=== PATIENT | female | born 2000 | race Caucasian/White ===

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

== ENCOUNTER 2022-04-17 20:12 | Emergency (ER) | payer MEDICAID, SELFPAY ==
[2022-04-17 20:37] VITALS: BP 111/74; PULSE 102; RESP 16; TEMP 36.6; O2SAT 100
--- NOTE | 2022-04-17 20:48 | ED_ITS ---
HPI - Headache General: Chief Complaint: Headache Stated Complaint: migraine Time Seen by Provider: 04/17/22 20:42 History of Present Illness: 21-year-old female comes in today with complaints of migraine headache for the last 2 days. Patient has had nausea and vomiting with the headache. Patient does have a history of migraine headache and neurofibromatosis. Patient is usually managed well with her every third month injection for control of her migraine headaches. Patient denies any fever or other symptoms at this time. Review of Systems Neuro: Reports: headache(s) PFSH ED PFSH: Medical History Allergic rhinitis due to allergen Family History Grandmother Stroke Social History (Updated 04/08/22 @ 14:06 by Stacey Caballero) Smoking and tobacco status: never smoked Second hand smoke exposure: No Alcohol intake: never Physical Exam Const: COMMON NORMALS: alert HENMT: COMMON NORMALS: normocephalic HEAD & SCALP: normocephalic Neck/C-Spine: COMMON NORMALS: full ROM Resp: COMMON NORMALS: normal respiratory effort and clear to auscultation bilaterally AUSCULTATION: clear to auscultation bilaterally Cardio: COMMON NORMALS: regular rate and regular rhythm RATE: regular rate RHYTHM: regular rhythm Extremity: COMMON NORMALS: no pedal edema Neuro: SENSORIUM/ORIENTATION: Yes alert Skin: COMMON NORMALS: turgor normal GENERAL SKIN EXAM: turgor normal Course Vital Signs: Vital signs: Vital Signs Temperature 97.8 F 04/17/22 20:37 Pulse Rate 102 H 04/17/22 20:37 Respiratory Rate 16 04/17/22 20:37 Blood Pressure 111/74 04/17/22 20:37 Pulse Oximetry 100 04/17/22 20:37 Oxygen Delivery Me thod 04/17/22 20:37 MDM - Headache Medical Decision Making 21-year-old female comes in today with 2-day history of migraine headache and nausea and vomiting. Patient does have a history of migraines which is usually controlled well with a injection every 3 months. Patient appears nontoxic. Patient appears in moderate pain. No new focal neural deficits are noted. Differential diagnosis includes tension headache, migraine headache, viral syndrome. Patient was given a headache cocktail with 15 mg ketorolac, 10 mg Reglan, and 10 mg dexamethasone. Patient had resolution of headache. Recommended continuing routine care and follow-up as needed. Patient reported understanding and agreed to plan. Discharge Plan Discharge Patient Disposition: Home Clinical Impression: Migraine Qualifiers: Migraine type: unspecified Status migrainosus presence: without status migrainosus Intractability: not intractable Qualified Code(s): G43.909 - Migraine, unspecified, not intractable, without status migrainosus Condition: Stable Prescriptions: No Action amoxicillin 500 mg capsule 500 mg PO BID 7 Days Qty: 14 0RF control IM albuterol sulfate [Ventolin HFA] 90 mcg/actuation HFA aerosol inhaler 2 puff inhalation Q6H PRN (Reason: shortness of breath or wheezing) Qty: 8.5 0RF Ajovy Autoinjector 225 mg/1.5 mL auto-injector 225 mg SUBCUT ONCE Qty: 1.5 3RF Discharge Orders: Discharge ED (Routine); Ordered 04/17/22 Ordered By: José Manuel Koenig Referrals: Aniya Mota MD [Primary Care Provider] - Nemesio Mota MD [Family Provider] - Discharge Diet: Usual diet Discharge Activity: Increase activity as tolerated Patient Instructions: Headache - Migraine (Adult) Activity Restrictions/Additional Instructions: Continue with routine care. Follow-up with primary care or urologist for further recommendations of treatment. Return to ED for new concerns or worsening symptoms. Coding Level of Care Code ED Corporate Compliance Manager for Charli Fwd Exam Detailed
[2022-04-17] MEDS: ketorolac 30 mg/mL INJ 15 MG IVP (20:58)
[2022-04-17] MEDS: dexamethasone 10 mg/mL INJ IVP (20:58)
[2022-04-17] MEDS: sodium chloride 0.9% 500 ML 999 ML IV (20:59)
[2022-04-17] MEDS: metoclopramide 5 mg/mL SDV 2 mL 10 MG IVP (20:59)
== END 2022-04-17 21:37 | disposition home or self-care (01) ==
PROVIDERS: Emergency Provider Nurse Practitioner Family; Family Provider Pediatrics; PCP Internal Medicine
DX: G43.909 Migraine, unspecified, not intractable, without status migrainosus (principal)
CPT/HCPCS: 96361; 96374; 96375; 99284; J1100; J1885; J2765; J7040

== ENCOUNTER 2022-06-25 19:52 | Emergency (ER) | payer MEDICAID, SELFPAY ==
[2022-06-25 20:13] VITALS: BP 118/79; PULSE 117; RESP 18; TEMP 36.9; O2SAT 97; BMI 22.4
--- NOTE | 2022-06-25 21:11 | W.ED.HA ---
HPI - Headache General: Chief Complaint: Headache Stated Complaint: migraine for 3 days Time Seen by Provider: 06/25/22 20:53 History of Present Illness: 22-year-old female comes in today for complaints of migraine headache. Patient has recurrent migraine headaches and is prophylactic treatment monthly. Patient does get breakthrough headaches about every 3 months. Last time she was treated in the ER was approximately 3 months ago. Patient appears nontoxic. Patient appears no acute distress. Associated symptoms: Deny fever(s) or vomiting Review of Systems General: Reports: 10 or more systems reviewed and unremarkable except in HPI and below Const: Denies: fever(s) ENMT: Denies: throat pain GI: Denies: vomiting Musc: Denies: neck pain Neuro: Reports: headache(s) PFSH ED PFSH: Medical History Allergic rhinitis due to allergen Family History Grandmother Stroke Social History (Updated 04/08/22 @ 14:06 by Stacey Caballero) Smoking and tobacco status: never smoked Second hand smoke exposure: No Alcohol intake: never Physical Exam Const: COMMON NORMALS: alert Neck/C-Spine: COMMON NORMALS: full ROM Resp: COMMON NORMALS: normal respiratory effort Cardio: COMMON NORMALS: regular rate RATE: regular rate Extremity: COMMON NORMALS: normal to inspection Neuro: SENSORIUM/ORIENTATION: Yes alert Skin: COMMON NORMALS: no rashes or lesions noted GENERAL SKIN EXAM: no rashes or lesions noted Course Vital Signs: Vital signs: Vital Signs Temperature 98.5 F 06/25/22 20:13 Pulse Rate 117 H 06/25/22 20:13 Respiratory Rate 18 06/25/22 20:13 Blood Pressure 118/79 06/25/22 20:13 Pulse Oximetry 97 06/25/22 20:13 Oxygen Delivery Me thod 06/25/22 20:13 MDM - Headache Medical Decision Making 22-year-old female comes in today with complaints of migraine. On exam patient is alert and oriented. Patient appears nontoxic. Respirations are even. Vital signs are normal. Differential diagnosis includes migraine headache, tension headache, dehydration. No signs of serious illness or injury is noted. Patient was treated for migraine headache with dexamethasone, metoclopramide, and ketorolac. Patient tolerated well with improvement of headache and discharged home. Discharge Plan Discharge Patient Disposition: Home Clinical Impression: Migraine Condition: Stable Prescriptions: No Action amoxicillin 500 mg capsule 500 mg PO BID 7 Days Qty: 14 0RF control IM albuterol sulfate [Ventolin HFA] 90 mcg/actuation HFA aerosol inhaler 2 puff inhalation Q6H PRN (Reason: shortness of breath or wheezing) Qty: 8.5 0RF Ajovy Autoinjector 225 mg/1.5 mL auto-injector 225 mg SUBCUT ONCE Qty: 1.5 3RF Discharge Orders: Discharge ED (Routine); Ordered 06/25/22 Ordered By: José Manuel Koenig Referrals: Aniya Mota MD [Primary Care Provider] - Nemesio Mota MD [Family Provider] - Discharge Diet: Usual diet Discharge Activity: Increase activity as tolerated Patient Instructions: Migraine Headache (ED) Activity Restrictions/Additional Instructions: Home and rest. Drink plenty of water and fluids. Continue with routine care. Return to ER for new concerns. Coding Level of Care Code ED Supervisor Fiber Locking for Charli Connelly
[2022-06-25] MEDS: metoclopramide 5 mg/mL SDV 2 mL 10 MG IVP (21:24)
[2022-06-25] MEDS: ketorolac 30 mg/mL INJ 15 MG IVP (21:25)
[2022-06-25] MEDS: dexamethasone 10 mg/mL INJ IM (21:30)
[2022-06-25] MEDS: sodium chloride 0.9% 500 ML 999 ML IV (21:36)
== END 2022-06-25 22:00 | disposition home or self-care (01) ==
PROVIDERS: Emergency Provider Nurse Practitioner Family; Family Provider Pediatrics; PCP Internal Medicine
DX: G43.909 Migraine, unspecified, not intractable, without status migrainosus (principal)
CPT/HCPCS: 96374; 96375; 99284; J1100; J1885; J2765; J7040

== ENCOUNTER 2022-07-19 17:33 | Emergency (ER) | payer MEDICAID, SELFPAY ==
[2022-07-19 17:45] VITALS: BP 106/73; PULSE 92; RESP 15; TEMP 36.9; O2SAT 99
--- NOTE | 2022-07-19 18:22 | ED_ITS ---
HPI - Headache General: Chief Complaint: Headache Stated Complaint: headpain Time Seen by Provider: 07/19/22 17:55 Source: patient Mode of arrival: ambulatory Limitations: no limitations History of Present Illness: Patient presents to the emergency department today for evaluation treatment of recurrence of her chronic migraines. Intensive chart review regarding the patient's complaints did reveal that she has been seen and evaluated by neurology since last year and has known diagnosed neurofibromatosis. Patient is also followed for her chronic migraines and has been receiving various treatments for control of her headaches. Patient is currently on an every 6- month follow-up with neurology. Patient was seen last month for similar headache and, 3 months prior to that. Patient states she has had her headache now for a couple of days and has been trying Tylenol with some improvement of symptoms but no resolution. Patient reports her typical photophobia and sound sensitivity. She denies any vomiting at this time. Associated symptoms: Deny confusion Review of Systems General: Reports: 10 or more systems reviewed and unremarkable except in HPI and below Neuro: Reports: headache(s); Denies: weakness in extremities, confusion or Slurred speech present [facility] ED PFSH: Medical History Allergic rhinitis due to allergen Family History Grandmother Stroke Social History Smoking and tobacco status: never smoked Second hand smoke exposure: No Alcohol intake: never Substance/Drug Use: never Physical Exam Const: COMMON NORMALS: no acute distress, patient oriented x3 and alert OTHER: Patient is talking on her cell phone and is up pacing [id number]. HENMT: COMMON NORMALS: normocephalic and atraumatic HEAD & SCALP: normal to inspection, normocephalic and atraumatic Eye: COMMON NORMALS: Equal, round and reactive pupils present, EOMs intact bilaterally and conjunctivae normal CONJUNCTIVA: Yes conjunctivae normal PUPIL: Yes Equal, round and reactive pupils present Neck/C-Spine: COMMON NORMALS: no JVD Lymph: LYMPHATIC: no lymphadenopathy noted Resp: COMMON NORMALS: normal respiratory effort, No retractions and No use of accessory muscles Cardio: COMMON NORMALS: no JVD and regular rate RATE: regular rate : COMMON NORMALS: Yes no CVA tenderness BLADDER/KIDNEY EXAM: Yes no CVA tenderness Back/Pelvis: COMMON NORMALS: no CVA tenderness, thoracic and lumbar spine normal to inspection and thoraco-lumbar ROM normal Extremity: COMMON NORMALS: normal to inspection, full ROM and no pedal edema Neuro: COMMON NORMALS: patient oriented x3 SENSORIUM/ORIENTATION: Yes alert SPEECH: speech normal GAIT: Yes Normal gait present MOTOR EXAM: 5/5 motor strength present throughout OTHER: Patient shows no signs of any neurological deficit. Patient is ambulatory without ataxia. Skin: COMMON NORMALS: no rashes or lesions noted and turgor normal GENERAL SKIN EXAM: no rashes or lesions noted and turgor normal Course Vital Signs: Vital signs: Vital Signs Temperature 98.5 F 07/19/22 17:45 Pulse Rate 92 07/19/22 17:45 Respiratory Rate 15 07/19/22 17:45 Blood Pressure 106/73 07/19/22 17:45 Pulse Oximetry 99 07/19/22 17:45 Oxygen Delivery Me thod Room Air 07/19/22 17:45 MDM - Headache Medical Decision Making Patient presented to the emergency department today for evaluation treatment of 2 days of her typical migraine headache. I did an extensive evaluation of the patient's past medical history and neuro evaluations in the past. Patient is currently being treated for chronic migraine headaches and often gets breakthrough headaches. She has been treated with steroid, Reglan, and Toradol in the past with good result. Patient was treated similarly today and had good resolution of her symptoms. Patient is requesting to be discharged and is up and ambulatory, talking on her cell phone. Patient was encouraged to reach out to her neurologist or follow-up with primary care for continued monitoring of her recurrent breakthrough migraines or, should be seen and reevaluated in the ER for any acute neurological change. Differential Diagnosis Likely migraine, tension headache, headache and meningitis Discharge Plan Discharge Patient Disposition: Home Clinical Impression: Migraine Condition: Stable Prescriptions: No Action amoxicillin 500 mg capsule 500 mg PO BID 7 Days Qty: 14 0RF control IM albuterol sulfate [Ventolin HFA] 90 mcg/actuation HFA aerosol inhaler 2 puff inhalation Q6H PRN (Reason: shortness of breath or wheezing) Qty: 8.5 0RF Ajovy Autoinjector 225 mg/1.5 mL auto-injector 225 mg SUBCUT ONCE Qty: 1.5 3RF Discharge Orders: Discharge ED (Routine); Ordered 07/19/22 Ordered By: Lu Brown Referrals: Aniya Mota MD [Primary Care Provider] - Discharge Diet: Usual diet Discharge Activity: Increase activity as tolerated Patient Instructions: Migraine Headache (ED) Activity Restrictions/Additional Instructions: Continue to stay hydrated, rest, eat regular, healthy meals. If you have any acute change or worsening in your headache you should be seen and reevaluated again otherwise, follow-up with your primary care doctor or neurologist for any concerns. Coding Level of Care Code ED Contact Center Manager for Charli Connelly
[2022-07-19] MEDS: dexamethasone 10 mg/mL INJ IM (18:28)
[2022-07-19] MEDS: ketorolac 30 mg/mL INJ 15 MG IVP (18:28)
[2022-07-19] MEDS: metoclopramide 5 mg/mL SDV 2 mL 10 MG IVP (18:29)
== END 2022-07-19 19:41 | disposition home or self-care (01) ==
PROVIDERS: Emergency Provider Physician Assistant; PCP Internal Medicine
DX: G43.909 Migraine, unspecified, not intractable, without status migrainosus (principal)
CPT/HCPCS: 96372; 96374; 96375; 99284; J1100; J1885; J2765

== ENCOUNTER → 2022-08-08 14:38 | Outpatient (BNVA) | payer MEDICAID, SELFPAY | PROVIDERS: PCP Internal Medicine; Visit Provider Family Medicine Adult Medicine | DX: Q85.01 Neurofibromatosis, type 1 (principal); J30.9 Allergic rhinitis, unspecified; G43.711 Chronic migraine without aura, intractable, with status migrainosus | CPT/HCPCS: 80053; 80061; 84443; 85025 ==

== ENCOUNTER 2022-10-07 11:03 | Emergency (ER) | payer MEDICAID, SELFPAY ==
[2022-10-07 11:06] VITALS: BP 102/70; PULSE 98; RESP 16; TEMP 36.8; O2SAT 98; BMI 21.4
--- NOTE | 2022-10-07 11:26 | W.ED.EXTPRO ---
HPI - Extremity Problem General: Chief complaint: Extremity Problem,Nontraumatic Stated complaint: too small ring on finger Time Seen by Provider: 10/07/22 11:20 Source: patient Mode of arrival: ambulatory Limitations: no limitations History of Present Illness: Patient is a 22-year-old female who presents to the ED today with a ring stuck on her right ring finger. She states just prior to arrival she was going through a box of old junk and found the ring and put it on her finger and has been unable to get it off. She has since noticed some mild swelling to the digit but no color/temperature changes. Sensation is normal. MD Complaint: extremity pain Onset (ago): hour(s) Pain Consistency: constant Location: right and upper extremity Radiation: none Relieving factors: nothing Associated symptoms: Reports no associated symptoms Review of Systems Musc: Reports: extremity pain and extremity swelling Skin/Breast: Denies: erythema Neuro: Denies: numbness in extremities or sensory changes PFS ED PFSH: Medical History Allergic rhinitis due to allergen Neurofibromatosis, type 1 Participant in health and wellness plan Scoliosis Family History Grandmother Stroke Social History Smoking and tobacco status: never smoked Second hand smoke exposure: No Alcohol intake: never Substance/Drug Use: never Physical Exam Const: COMMON NORMALS: no acute distress, average body habitus, patient oriented x3, no limitations, alert and well nourished Extremity: COMMON NORMALS: full ROM and capillary refill normal GENERAL: Yes normal exam except as noted RIGHT UPPER EXTREMITY: Yes hand & digits OTHER: ring to R ring finger that is too tight to be removed manually; string trick unsuccessful; ring was removed using ring cutter; NV pre and post procedure Neuro: COMMON NORMALS: patient oriented x3 SENSORIUM/ORIENTATION: Yes alert Procedures Foreign Body Removal Time Out Performed: no Site: right and hand (right ring finger) Description of foreign body: other (ring) Sedation/Analgesia: none Technique: other (ring cutter) Confirmed by:: direct visualization Complications: none Post-procedure exam: awake, alert, normal BP, normal HR and normal O2 sat Neurovascular: normal distal pulse, normal capillary fill, distal light touch sensation intact, distal motor function normal and no signs of compartment syndrome Course Vital Signs: Vital signs: Vital Signs Temperature 98.2 F 10/07/22 11:06 Pulse Rate 98 10/07/22 11:06 Respiratory Rate 16 10/07/22 11:06 Blood Pressure 102/70 10/07/22 11:06 Pulse Oximetry 98 10/07/22 11:06 Oxygen Delivery Me thod Room Air 10/07/22 11:06 MDM - Extremity (Nontraumatic) Medical Decision Making Ring was cut off using ring cutter w/o complication. Discharge Plan Discharge Patient Disposition: Home Clinical Impression: Tight ring on finger Condition: Stable Prescriptions: No Action control IM albuterol sulfate [Ventolin HFA] 90 mcg/actuation HFA aerosol inhaler 2 puff inhalation Q6H PRN (Reason: shortness of breath or wheezing) Qty: 8.5 0RF propranolol 10 mg tablet 10 mg PO BID 120 Days Qty: 240 0RF montelukast [Singulair] 10 mg tablet 10 mg PO DAILY 120 Days Qty: 120 0RF Ajovy Autoinjector 225 mg/1.5 mL auto-injector See Rx Instructions .ROUTE .COMPLEX Qty: 1.5 2RF Dose Instruction: INJECY CONTENTS OF ONE PEN UNDER THE SKIN ONCE A MONTH Rx Instructions: INJECY CONTENTS OF ONE PEN UNDER THE SKIN ONCE A MONTH Discharge Orders: Discharge ED (Routine); Ordered 10/07/22 Ordered By: Krupa Dugan Referrals: Aniya Mota MD [Primary Care Provider] - Coding Level of Care Code ED Javascript Ui Developer for Chg Maricel
== END 2022-10-07 11:34 | disposition home or self-care (01) ==
PROVIDERS: Emergency Provider Physician Assistant; PCP Internal Medicine
DX: S60.454A Superficial foreign body of right ring finger, initial encounter (principal); X58.XXXA Exposure to other specified factors, initial encounter
CPT/HCPCS: 99282

== ENCOUNTER → 2022-12-09 07:33 | Outpatient (BNVA) | payer MEDICAID, SELFPAY | PROVIDERS: PCP Internal Medicine; Visit Provider Specialist | DX: G43.711 Chronic migraine without aura, intractable, with status migrainosus (principal); G93.9 Disorder of brain, unspecified; Q85.01 Neurofibromatosis, type 1 | CPT/HCPCS: 99213 ==

== ENCOUNTER 2023-04-14 05:17 | Emergency (ER) | payer MEDICAID, SELFPAY ==
[2023-04-14 05:20] VITALS: BP 121/87; PULSE 86; RESP 16; TEMP 36.6; O2SAT 99; BMI 17.4
[2023-04-14] MEDS: metoclopramide 5 mg/mL SDV 2 mL 10 MG IVP (05:51)
[2023-04-14] MEDS: ketorolac 30 mg/mL INJ 15 MG IVP (05:52)
[2023-04-14] MEDS: dexamethasone 4 mg/mL INJ 8 MG IVP (05:53)
[2023-04-14] MEDS: valproic acid inj 500 MG in sodium chloride 0.9% 50 ML 55 MG IV (05:56)
[2023-04-14 06:02] VITALS: PULSE 82; O2SAT 99
--- NOTE | 2023-04-14 06:06 | W.ED.HA ---
HPI - Headache General: Chief Complaint: Headache Stated Complaint: Head Ache Time Seen by Provider: 04/14/23 05:38 History of Present Illness: 22-year-old female with a history of neurofibromatosis. She also has a history of chronic migraine. She presents with a headache that started last night. She took her migraine medication at home, without relief. She is nauseated. She has not vomited. No recent illness such as fever, cough, etc. No new or neurologic symptoms. No blurred vision, weakness, trouble with language or speech. Associated symptoms: Reports nausea; Deny chest pain, confusion, fever(s) or vomiting Review of Systems Const: Denies: fever(s) Eyes: Denies: change in vision ENMT: Denies: throat pain Card: Denies: chest pain Resp: Denies: dyspnea GI: Reports: nausea; Denies: vomiting Musc: Denies: neck pain Neuro: Reports: headache(s); Denies: numbness in extremities, weakness in extremities, confusion or seizure-like activity [facility] ED PFSH: Medical History Participant in health and wellness plan Scoliosis Neurofibromatosis, type 1 Allergic rhinitis due to allergen Family History Grandmother Stroke Social History Smoking and tobacco/nicotine status: never used tobacco/nicotine Second hand smoke exposure: No Alcohol intake: never Substance/Drug Use: never Female Reproductive History: Date of last menstrual period: 03/26/23 Physical Exam Const: COMMON NORMALS: no acute distress GENERAL APPEARANCE: cooperative; not ill appearing and not frail appearing HENMT: COMMON NORMALS: normocephalic, atraumatic and Normal external nose present HEAD & SCALP: normocephalic and atraumatic FACE & SINUS: normal facial exam and face symmetric NOSE: Normal external nose present Eye: COMMON NORMALS: Equal, round and reactive pupils present and EOMs intact bilaterally PUPIL: Yes Equal, round and reactive pupils present Neck/C-Spine: GENERAL: Yes trachea midline Chest: CHEST: Yes Symmetrical chest wall rise Resp: COMMON NORMALS: normal respiratory effort, No retractions, No use of accessory muscles and clear to auscultation bilaterally AUSCULTATION: clear to auscultation bilaterally Cardio: COMMON NORMALS: regular rate and regular rhythm RATE: regular rate RHYTHM: regular rhythm GI: COMMON NORMALS: Normal to inspection, nondistended, normoactive bowel sounds present Extremity: COMMON NORMALS: no pedal edema Neuro: OLIVIA COMA SCALE: document GCS findings Olivia coma scale eye opening: Spontaneous [place] coma scale verbal response: Orientated Olivia coma scale motor response: Obey commands Olivia coma scale total score: 15 SENSORY EXAM: Yes extremities (intact) Psych: COMMON NORMALS: speech normal SPEECH: Yes normal speech Skin: COMMON NORMALS: no rashes or lesions noted GENERAL SKIN EXAM: no rashes or lesions noted Course Vital Signs: Vital signs: Vital Signs Temperature 97.9 F 04/14/23 05:20 Pulse Rate 82 04/14/23 06:02 Respiratory Rate 16 04/14/23 05:20 Blood Pressure 121/87 04/14/23 05:20 Pulse Oximetry 99 04/14/23 06:02 Oxygen Delivery Me thod Room Air 04/14/23 06:02 MDM - Headache Medical Decision Making Patient with a long history of migraine. No change in her migrainous symptoms, other than this headache did not improve significantly with home treatment alone. She is given a migraine cocktail here. Pain is now rated at 3 down from a 9. Will allow discharge. She knows to return for worsening symptoms, or any new neurological symptoms such as vision changes, weakness, etc. No radiology studies performed this visit Discharge Plan Discharge Patient Disposition: Home Clinical Impression: Chronic migraine without aura, intractable, with status migrainosus Prescriptions: No Action Ajovy Autoinjector 225 mg/1.5 mL auto-injector See Rx Instructions .ROUTE .COMPLEX Qty: 1.5 11RF Dose Instruction: INJECY CONTENTS OF ONE PEN UNDER THE SKIN ONCE A MONTH Rx Instructions: INJECY CONTENTS OF ONE PEN UNDER THE SKIN ONCE A MONTH sumatriptan succinate [Imitrex] 100 mg tablet See Rx Instructions PO .COMPLEX Qty: 10 5RF Rx Instructions: take 1 tab at onset of headache; if no relief, may repeat 1 tab after at least 2 hrs; max = 2 tabs/24 hrs PO control IM albuterol sulfate [Ventolin HFA] 90 mcg/actuation HFA aerosol inhaler 2 puff inhalation Q6H PRN (Reason: shortness of breath or wheezing) Qty: 8.5 0RF montelukast [Singulair] 10 mg tablet 10 mg PO DAILY 120 Days Qty: 120 0RF Discharge Orders: Discharge ED (Routine); Ordered 04/14/23 Ordered By: Tarun Williamson Referrals: Aniya Mota MD [Primary Care Provider] - 4-7 days Patient Instructions: Acute Headache (ED), Opioid Safety, Pain Management Activity Restrictions/Additional Instructions: Return for vomiting, worsening pain, vision changes, language problems, weakness, other concerning symptoms. See your doctor this week. Coding Level of Care Code ED Warehouse Operator for Charli Connelly
[2023-04-14 06:50] VITALS: BP 121/87; PULSE 93; O2SAT 100
[2023-04-14] MEDS: oxyCODONE-APAP 5-325 mg Tablet 1 TAB PO (06:53)
== END 2023-04-14 06:52 | disposition home or self-care (01) ==
PROVIDERS: Emergency Provider Emergency Medicine; PCP Internal Medicine
DX: G43.711 Chronic migraine without aura, intractable, with status migrainosus (principal)
CPT/HCPCS: 96365; 96375; 99284; J1100; J1885; J2765; J3490

== ENCOUNTER 2023-05-28 23:00 | Emergency (ER) | payer MEDICAID, SELFPAY ==
[2023-05-28 23:21] VITALS: BP 122/82; PULSE 78; RESP 16; TEMP 36.6; O2SAT 98; BMI 21.1
--- NOTE | 2023-05-28 23:32 | W.ED.URI ---
HPI - URI/Sore Throat General: Chief Complaint: Upper Respiratory Infection Stated Complaint: Sore throat cant eat coughing Time Seen by Provider: 05/28/23 23:02 Source: patient Mode of arrival: ambulatory Limitations: no limitations History of Present Illness: Patient is a 22-year-old female with history of neurofibromatosis type I who reports to the ED complaining of sore throat onset 2-3 days. Patient states she saw her primary care provider initially, but was not swabbed for flu or strep and was given a prescription for an antitussive. She states she still has a cough, though nonproductive. The patient also says that she looks more pale than normal. She also reports running subjective fevers and says that it hurts to eat. Otherwise, she denies any abdominal pain, nausea, vomiting, diarrhea, difficulty breathing, or any other symptoms. MD elicited complaint: sore throat Onset (ago): day(s) Consistency: constant Able to tolerate fluids by mouth: Yes Exacerbating factors: swallowing Associated symptoms: Reports fever(s) (Subjective); Deny abdominal pain, chills, chest pain, diarrhea, ear or mastoid pain, headache(s), nausea or vomiting Review of Systems General: Reports: 10 or more systems reviewed and unremarkable except in HPI and below Const: Reports: fever(s) (Subjective) and other (Pallor); Denies: chills, body aches, fatigue or malaise Eyes: Denies: change in vision ENMT: Reports: throat pain and odynophagia; Denies: ear or mastoid pain or nasal discharge Card: Denies: chest pain, palpitations, swelling of feet/ankles or lightheadedness Resp: Reports: non-productive cough; Denies: dyspnea or wheezing GI: Denies: abdominal pain, nausea, vomiting, diarrhea or constipation : Denies: flank pain, difficulty voiding, dysuria or urinary frequency Musc: Denies: neck pain, back pain or joint pain Skin/Breast: Denies: rash Neuro: Denies: headache(s), numbness in extremities or weakness in extremities PFS ED PFSH: Medical History Participant in health and wellness plan Scoliosis Neurofibromatosis, type 1 Allergic rhinitis due to allergen Family History Grandmother Stroke Social History Smoking and tobacco/nicotine status: never used tobacco/nicotine Second hand smoke exposure: No Alcohol intake: never Substance/Drug Use: never Physical Exam Const: COMMON NORMALS: no acute distress, patient oriented x3 and no limitations GENERAL APPEARANCE: cooperative, comfortable and well developed ORIENTATION/CONSCIOUSNESS: Yes awake, Yes oriented to person, Yes oriented to place and Yes oriented to time HENMT: COMMON NORMALS: normocephalic, atraumatic, hearing grossly normal bilaterally, external ears normal, EAC's normal, TM's normal bilaterally, Normal external nose present and Normal nasal mucous membranes and turbinates present HEAD & SCALP: normocephalic and atraumatic FACE & SINUS: normal facial exam and sinuses nontender NOSE: Normal external nose present, Normal nares present, No nasal polyps present and Normal nasal mucous membranes and turbinates present EXTERNAL EAR: Yes external ears normal EXTERNAL AUDITORY CANAL: EAC's normal TYMPANIC MEMBRANE: TM's normal bilaterally MOUTH: Normal oral and palatal mucosa present THROAT: posterior oropharynx normal, uvula midline and abnormal tonsil bilateral hypertrophy 1+; no erythema, no exudates and no pitting Eye: COMMON NORMALS: Equal, round and reactive pupils present, EOMs intact bilaterally and conjunctivae normal CONJUNCTIVA: Yes conjunctivae normal PUPIL: Yes Equal, round and reactive pupils present Neck/C-Spine: COMMON NORMALS: full ROM, supple and no JVD Lymph: LYMPHATIC: lymphadenopathy (Right anterior cervical) Resp: COMMON NORMALS: normal respiratory effort, No retractions, No use of accessory muscles and clear to auscultation bilaterally AUSCULTATION: clear to auscultation bilaterally Cardio: COMMON NORMALS: no JVD, regular rate, regular rhythm, No clicks present (Cardio), No murmurs present (Cardio) and No rub (Cardio) RATE: regular rate RHYTHM: regular rhythm GI: COMMON NORMALS: Normal to inspection, nondistended, normoactive bowel sounds present, Soft to palpation and non-tender PALPATION: Yes Soft to palpation Extremity: COMMON NORMALS: normal to inspection and full ROM Neuro: COMMON NORMALS: patient oriented x3, moves all extremities, no focal motor deficits and no sensory deficits noted SENSORIUM/ORIENTATION: Yes oriented to person, Yes oriented to place and Yes oriented to time Psych: COMMON NORMALS: mental status grossly normal and Normal thought process present THOUGHT PROCESS: Normal thought process present Skin: COMMON NORMALS: no rashes or lesions noted GENERAL SKIN EXAM: no rashes or lesions noted and pallor Course Vital Signs: Vital signs: Vital Signs Temperature 97.9 F 05/28/23 23:21 Pulse Rate 78 05/28/23 23:21 Respiratory Rate 16 05/28/23 23:21 Blood Pressure 122/82 05/28/23 23:21 Pulse Oximetry 98 05/28/23 23:21 Oxygen Delivery Me thod Room Air 05/28/23 23:21 MDM - URI/Sore Throat Medical Decision Making This patient is a 22-year-old female who was seen and evaluated in the emergency department today for sore throat. This is her second time being evaluated for the symptoms, as she was only prescribed an antitussive with her past visit at her primary care's office. Her vitals have been stable throughout her ED course, she has been afebrile. Examination reveals a mildly pale individual with minimally hypertrophied tonsils bilaterally and no signs of exudates or cobblestoning. She also had a mobile and tender lymph node noted at the anterior cervical area. The rest of her exam was unremarkable. Rapid strep and flu A/B swabs were both negative. I believe that her symptoms are due to an unspecified upper respiratory illness. She will be given a shot of dexamethasone and Toradol prior to discharge. Patient will also be sent home with a prescription for clindamycin to empirically treat any bacterial etiology. Pain medications will be prescribed for use as needed for any breakthrough pain. She is also instructed to use Tylenol/ibuprofen for any fevers. She will return to work once symptom-free. Patient agrees with this plan and reasons to return discussed. Patient discharged home. Lab Data Laboratory Results Influenza Type A Ag negative (Negative) 05/28/23 23:42 Influenza Type B Ag negative (Negative) 05/28/23 23:42 Group A Strep Rapid Negative (Negative) 05/28/23 23:42 No radiology studies performed this visit Discharge Plan Discharge Patient Disposition: Home Clinical Impression: Upper respiratory infection Qualifiers: URI type: acute pharyngitis Pharyngitis/tonsillitis etiology: unspecified etiology Qualified Code(s): J02.9 - Acute pharyngitis, unspecified Condition: Stable Prescriptions: New clindamycin HCl 300 mg capsule 300 mg PO Q6H 7 Days Qty: 28 0RF hydrocodone-acetaminophen 5-325 mg tablet 1 tab PO Q6H PRN (Reason: pain) Qty: 7 0RF No Action Ajovy Autoinjector 225 mg/1.5 mL auto-injector See Rx Instructions .ROUTE .COMPLEX Qty: 1.5 11RF Dose Instruction: INJECY CONTENTS OF ONE PEN UNDER THE SKIN ONCE A MONTH Rx Instructions: INJECY CONTENTS OF ONE PEN UNDER THE SKIN ONCE A MONTH sumatriptan succinate [Imitrex] 100 mg tablet See Rx Instructions PO .COMPLEX Qty: 10 5RF Rx Instructions: take 1 tab at onset of headache; if no relief, may repeat 1 tab after at least 2 hrs; max = 2 tabs/24 hrs PO control IM albuterol sulfate [Ventolin HFA] 90 mcg/actuation HFA aerosol inhaler 2 puff inhalation Q6H PRN (Reason: shortness of breath or wheezing) Qty: 8.5 0RF montelukast [Singulair] 10 mg tablet 10 mg PO DAILY 120 Days Qty: 120 0RF benzonatate 100 mg capsule 100 mg PO TID PRN (Reason: cough) Qty: 20 0RF Discharge Orders: Discharge ED (Routine); Ordered 05/29/23 Ordered By: Carlos Ramírez Referrals: Aniya Mota MD [Primary Care Provider] - Discharge Diet: Usual diet Discharge Activity: Increase activity as tolerated Patient Instructions: Upper Respiratory Infection (ED), Opioid Safety, Pain Management Activity Restrictions/Additional Instructions: Clindamycin as prescribed. Pain medications as directed. Tylenol/ibuprofen for any fevers. Plenty of fluids. Off work until symptom-free. Return if any new or worsening symptoms. Stand Alone Forms: Work/School Release Coding Level of Care Code ED Parts Counterman for Charli Connelly
[2023-05-28 23:54] LABS: Rapid Strep A Test Negative (Negative)
[2023-05-29 00:03] LABS: Influenza A by IFA negative (Negative); Influenza B by IFA negative (Negative)
[2023-05-29] MEDS: dexamethasone 10 mg/mL INJ 8 MG IM (00:21)
[2023-05-29] MEDS: ketorolac 60 mg/2 mL INJ IM (00:22)
== END 2023-05-29 00:47 | disposition home or self-care (01) ==
PROVIDERS: Emergency Provider Physician Assistant; PCP Internal Medicine
DX: J02.9 Acute pharyngitis, unspecified (principal)
CPT/HCPCS: 87081; 87804; 87880; 96372; 99284; J1100; J1885

== ENCOUNTER 2023-07-24 21:12 | Emergency (ER) | payer MEDICAID, SELFPAY ==
[2023-07-24 21:18] VITALS: BP 110/76; PULSE 91; RESP 16; TEMP 36.2; O2SAT 97
--- NOTE | 2023-07-24 21:40 | W.ED.HA ---
HPI - Headache General: Chief Complaint: Headache Stated Complaint: N/V, Time Seen by Provider: 07/24/23 21:32 History of Present Illness: 23-year-old female comes in today for complaints of migraine headache. Patient reports started about 4 hours prior to arrival. Patient had no medicine at home to take but usually just uses some ibuprofen or Tylenol with improvement. Tonight patient been unable to hold medicine down. Patient has had episodes of emesis with this headache. Patient does take a prevention injection for her migraines. Patient takes no other routine medicines. Patient's . Review of Systems General: Reports: 10 or more systems reviewed and unremarkable except in HPI and below Neuro: Reports: headache(s) PFSH ED PFSH: Medical History Participant in health and wellness plan Scoliosis Neurofibromatosis, type 1 Allergic rhinitis due to allergen Family History Grandmother Stroke Social History Smoking and tobacco/nicotine status: never used tobacco/nicotine Second hand smoke exposure: No Alcohol intake: never Substance/Drug Use: never Physical Exam Const: COMMON NORMALS: alert HENMT: COMMON NORMALS: normocephalic HEAD & SCALP: normocephalic Neck/C-Spine: COMMON NORMALS: full ROM Resp: COMMON NORMALS: normal respiratory effort and clear to auscultation bilaterally AUSCULTATION: clear to auscultation bilaterally Cardio: COMMON NORMALS: regular rate RATE: regular rate GI: COMMON NORMALS: non-tender Back/Pelvis: COMMON NORMALS: thoracic and lumbar spine normal to inspection Extremity: COMMON NORMALS: normal to inspection Neuro: SENSORIUM/ORIENTATION: Yes alert Skin: COMMON NORMALS: turgor normal GENERAL SKIN EXAM: turgor normal Course Vital Signs: Vital signs: Vital Signs Temperature 97.2 F L 07/24/23 21:18 Pulse Rate 91 07/24/23 21:18 Respiratory Rate 16 07/24/23 21:18 Blood Pressure 110/76 07/24/23 21:18 Pulse Oximetry 97 07/24/23 21:18 Oxygen Delivery Me thod Room Air 07/24/23 21:18 MDM - Headache Medical Decision Making Patient comes in for exacerbation of headache. On exam patient appears nontoxic. Patient has normal range of motion of the neck without any signs of meningitis. No focal neural deficits. Skin is warm and dry. Patient has had an episode of emesis. Differential diagnosis includes gastroenteritis, migraine headache, tension headache, reflux. Patient was given 30 mg of Toradol and 10 mg of Reglan IM. Patient had significant improvement in headache when discharged home. No radiology studies performed this visit Discharge Plan Discharge Patient Disposition: Home Clinical Impression: Migraine Qualifiers: Migraine type: unspecified Status migrainosus presence: without status migrainosus Intractability: not intractable Qualified Code(s): G43.909 - Migraine, unspecified, not intractable, without status migrainosus Condition: Stable Prescriptions: No Action Ajovy Autoinjector 225 mg/1.5 mL auto-injector See Rx Instructions .ROUTE .COMPLEX Qty: 1.5 11RF Dose Instruction: INJECY CONTENTS OF ONE PEN UNDER THE SKIN ONCE A MONTH Rx Instructions: INJECY CONTENTS OF ONE PEN UNDER THE SKIN ONCE A MONTH sumatriptan succinate [Imitrex] 100 mg tablet See Rx Instructions PO .COMPLEX Qty: 10 5RF Rx Instructions: take 1 tab at onset of headache; if no relief, may repeat 1 tab after at least 2 hrs; max = 2 tabs/24 hrs PO control IM albuterol sulfate [Ventolin HFA] 90 mcg/actuation HFA aerosol inhaler 2 puff inhalation Q6H PRN (Reason: shortness of breath or wheezing) Qty: 8.5 0RF montelukast [Singulair] 10 mg tablet 10 mg PO DAILY 120 Days Qty: 120 0RF benzonatate 100 mg capsule 100 mg PO TID PRN (Reason: cough) Qty: 20 0RF hydrocodone-acetaminophen 5-325 mg tablet 1 tab PO Q6H PRN (Reason: pain) Qty: 7 0RF Discharge Orders: Discharge ED (Routine); Ordered 07/24/23 Ordered By: José Manuel Koenig Referrals: Aniya Mota MD [Primary Care Provider] - Discharge Diet: Usual diet Discharge Activity: Increase activity as tolerated Patient Instructions: Migraine Headache (ED) Activity Restrictions/Additional Instructions: Activity as tolerated. Follow-up with primary care for further instructions. 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
[2023-07-24] MEDS: metoclopramide 5 mg/mL SDV 2 mL 10 MG IM (21:51)
[2023-07-24] MEDS: ketorolac 30 mg/mL INJ IM (21:51)
== END 2023-07-24 22:43 | disposition home or self-care (01) ==
PROVIDERS: Emergency Provider Nurse Practitioner Family; PCP Internal Medicine
DX: G43.909 Migraine, unspecified, not intractable, without status migrainosus (principal)
CPT/HCPCS: 96372; 99284; J1885; J2765

== ENCOUNTER 2023-10-06 11:22 | Emergency (ER) | payer MEDICAID, SELFPAY ==
[2023-10-06 11:33] VITALS: BP 100/65; PULSE 87; RESP 17; TEMP 36.8; O2SAT 98; BMI 20.5
--- NOTE | 2023-10-06 13:09 | ED_ITS ---
HPI - Headache General: Chief Complaint: Headache Stated Complaint: Migraine Time Seen by Provider: 10/06/23 13:02 Source: patient Mode of arrival: ambulatory Limitations: no limitations History of Present Illness: 23-year-old female states she has had a headache since yesterday states began gradual does worsen she has history of migraines states this feels the same she rates her headache an 8 out of 10 denies this being the worst headache of her life does have photophobia and phonophobia denies any fever. She is also had some left ear pain. Associated symptoms: Deny chest pain, fever(s), nausea, rash or vomiting Review of Systems Const: Denies: fever(s), chills, body aches or change in appetite ENMT: Reports: ear or mastoid pain; Denies: throat pain or dental pain Card: Denies: chest pain Resp: Denies: dyspnea GI: Denies: abdominal pain, nausea, vomiting or diarrhea Musc: Denies: neck pain or back pain Skin/Breast: Denies: rash Neuro: Reports: headache(s) PFSH ED PFSH: Medical History Participant in health and wellness plan Scoliosis Neurofibromatosis, type 1 Allergic rhinitis due to allergen Family History Grandmother Stroke Social History Smoking and tobacco/nicotine status: never used tobacco/nicotine Second hand smoke exposure: No Alcohol intake: never Substance/Drug Use: never Physical Exam Const: COMMON NORMALS: no acute distress, patient oriented x3 and healthy appearing HENMT: COMMON NORMALS: normocephalic, atraumatic and EAC's normal HEAD & SCALP: normocephalic and atraumatic EXTERNAL AUDITORY CANAL: EAC's normal TYMPANIC MEMBRANE: TM normal on the left Eye: COMMON NORMALS: conjunctivae normal CONJUNCTIVA: Yes conjunctivae normal Neck/C-Spine: COMMON NORMALS: full ROM and supple Chest: COMMONS NORMALS: normal inspection of the chest Resp: COMMON NORMALS: normal respiratory effort Extremity: COMMON NORMALS: normal to inspection and full ROM Neuro: COMMON NORMALS: patient oriented x3, moves all extremities and no focal motor deficits Psych: COMMON NORMALS: mental status grossly normal, Normal thought process present and cooperative THOUGHT PROCESS: Normal thought process present Skin: COMMON NORMALS: no rashes or lesions noted and no wounds GENERAL SKIN EXAM: no rashes or lesions noted Course Vital Signs: Vital signs: Vital Signs Temperature 98.2 F 10/06/23 11:33 Pulse Rate 87 10/06/23 11:33 Respiratory Rate 17 10/06/23 11:33 Blood Pressure 100/65 10/06/23 11:33 Pulse Oximetry 98 10/06/23 11:33 Oxygen Delivery Me thod Room Air 10/06/23 11:33 MDM - Headache Medical Decision Making Patient presents here with a migraine headache no signs of meningitis or subarachnoid hemorrhage did give her IM meds here her ear exam is benign no signs otitis media she stable for discharge follow-up PCP return if worsening. No radiology studies performed this visit Discharge Plan Discharge Patient Disposition: Home Clinical Impression: Headache Condition: Stable Prescriptions: No Action Ajovy Autoinjector 225 mg/1.5 mL auto-injector See Rx Instructions .ROUTE .COMPLEX Qty: 1.5 11RF Dose Instruction: INJECY CONTENTS OF ONE PEN UNDER THE SKIN ONCE A MONTH Rx Instructions: INJECY CONTENTS OF ONE PEN UNDER THE SKIN ONCE A MONTH sumatriptan succinate [Imitrex] 100 mg tablet See Rx Instructions PO .COMPLEX Qty: 10 5RF Rx Instructions: take 1 tab at onset of headache; if no relief, may repeat 1 tab after at least 2 hrs; max = 2 tabs/24 hrs PO control IM albuterol sulfate [Ventolin HFA] 90 mcg/actuation HFA aerosol inhaler 2 puff inhalation Q6H PRN (Reason: shortness of breath or wheezing) Qty: 8.5 0RF montelukast [Singulair] 10 mg tablet 10 mg PO DAILY 120 Days Qty: 120 0RF benzonatate 100 mg capsule 100 mg PO TID PRN (Reason: cough) Qty: 20 0RF hydrocodone-acetaminophen 5-325 mg tablet 1 tab PO Q6H PRN (Reason: pain) Qty: 7 0RF Discharge Orders: Discharge ED (Routine); Ordered 10/06/23 Ordered By: Ashleigh Trejo Referrals: Aniya Mota MD [Primary Care Provider] - 4-7 days Discharge Diet: Advance as tolerated Discharge Activity: Resume usual activity Patient Instructions: General Headache (ED) Coding Level of Care Code ED Cardiac Rehab Nurse for Charli Connelly
[2023-10-06] MEDS: metoclopramide 5 mg/mL SDV 2 mL 10 MG IM (13:20)
[2023-10-06] MEDS: ketorolac 60 mg/2 mL INJ IM (13:20)
[2023-10-06] MEDS: diphenhydrAMINE 50 mg/mL SDV 1mL IM (13:20)
[2023-10-06 14:14] VITALS: BP 102/67; PULSE 80; RESP 16; TEMP 36.8; O2SAT 99
== END 2023-10-06 13:23 | disposition home or self-care (01) ==
PROVIDERS: Emergency Provider Emergency Medicine; PCP Internal Medicine
DX: R51.9 Headache, unspecified (principal)
CPT/HCPCS: 96372; 96374; 96375; 99284; J1200; J1885; J2765

== ENCOUNTER 2023-10-22 07:08 | Emergency (ER) | payer MEDICAID, SELFPAY ==
[2023-10-22 07:18] VITALS: BP 116/80; PULSE 107; RESP 16; TEMP 37.1; O2SAT 99; BMI 21.2
[2023-10-22 07:42] VITALS: BP 112/82; O2SAT 98
[2023-10-22] MEDS: ondansetron 2 mg/ML SDV 2 mL 8 MG IVP (08:23)
--- NOTE | 2023-10-22 08:23 | ED_ITS ---
HPI - Headache General: Chief Complaint: Headache Stated Complaint: MONREAL, vomitting Time Seen by Provider: 10/22/23 07:48 History of Present Illness: 23-year-old female with a history of saul chuck headaches who presents emergency room with a headache for the last 3 days. She has had nausea but no vomiting. No focal motor deficits. She reports a generalized headache. She has photophobia and phonophobia. She takes medications for this and that has not helped. She follows with Dr. Browne with neurology Review of Systems Narrative: Constitutional symptoms: Negative except as documented in HPI. Skin symptoms: Negative except as documented in HPI. Eye symptoms: Negative except as documented in HPI. ENMT symptoms: Negative except as documented in HPI. Respiratory symptoms: Negative except as documented in HPI. Cardiovascular symptoms: Negative except as documented in HPI. Gastrointestinal symptoms: Negative except as documented in HPI. Genitourinary symptoms: Negative except as documented in HPI. Musculoskeletal symptoms: Negative except as documented in HPI. Neurologic symptoms: Negative except as documented in HPI. Psychiatric symptoms: Negative except as documented in HPI. Endocrine symptoms: Negative except as documented in HPI. PFSH ED PFSH: Medical History Participant in health and wellness plan Scoliosis Neurofibromatosis, type 1 Allergic rhinitis due to allergen Family History Grandmother Stroke Social History Smoking and tobacco/nicotine status: never used tobacco/nicotine Second hand smoke exposure: No Alcohol intake: never Substance/Drug Use: never Female Reproductive History: Date of last menstrual period: 10/15/23 Physical Exam Narrative: EXAM NARRATIVE: General: Alert, no acute distress. Skin: Warm, dry. Head: Normocephalic, atraumatic. Neck: Supple, trachea midline. Eye: Extraocular movements are intact. Ears, nose, mouth and throat: mucosa moist. Cardiovascular: Regular, Normal peripheral perfusion. Respiratory: Lungs are clear to auscultation, respirations are non-labored, breath sounds are equal, Symmetrical chest wall expansion. Gastrointestinal: Soft, Nontender, Non distended Musculoskeletal: Normal ROM, no deformity. Neurological: Alert and oriented, No focal neurological deficit observed. Psychiatric: Cooperative, appropriate mood & affect. Course Vital Signs: Vital signs: Vital Signs Temperature 98.8 F 10/22/23 07:18 Pulse Rate 97 10/22/23 08:31 Respiratory Rate 16 10/22/23 07:18 Blood Pressure 112/82 10/22/23 07:42 Pulse Oximetry 100 10/22/23 08:31 Oxygen Delivery Me thod Room Air 10/22/23 07:18 MDM - Headache Medical Decision Making Assessment and plan: Intractable migraine headache ? IV Reglan, IV Benadryl, IV Toradol, IV Decadron and IV Zofran in the emergency room - Discharged home - Discussed plan with patient. Answered any questions. - Evaluation and treatment of this problem were appropriate in the emergency setting. No radiology studies performed this visit Discharge Plan Discharge Patient Disposition: Home Clinical Impression: Migraine Qualifiers: Migraine type: unspecified Status migrainosus presence: without status migrainosus Intractability: intractable Qualified Code(s): G43.919 - Migraine, unspecified, intractable, without status migrainosus Condition: Stable Prescriptions: No Action Ajovy Autoinjector 225 mg/1.5 mL auto-injector See Rx Instructions .ROUTE .COMPLEX Qty: 1.5 11RF Dose Instruction: INJECY CONTENTS OF ONE PEN UNDER THE SKIN ONCE A MONTH Rx Instructions: INJECY CONTENTS OF ONE PEN UNDER THE SKIN ONCE A MONTH sumatriptan succinate [Imitrex] 100 mg tablet See Rx Instructions PO .COMPLEX Qty: 10 5RF Rx Instructions: take 1 tab at onset of headache; if no relief, may repeat 1 tab after at least 2 hrs; max = 2 tabs/24 hrs PO control IM albuterol sulfate [Ventolin HFA] 90 mcg/actuation HFA aerosol inhaler 2 puff inhalation Q6H PRN (Reason: shortness of breath or wheezing) Qty: 8.5 0RF montelukast [Singulair] 10 mg tablet 10 mg PO DAILY 120 Days Qty: 120 0RF benzonatate 100 mg capsule 100 mg PO TID PRN (Reason: cough) Qty: 20 0RF hydrocodone-acetaminophen 5-325 mg tablet 1 tab PO Q6H PRN (Reason: pain) Qty: 7 0RF Discharge Orders: Discharge ED (Routine); Ordered 07/24/24 Ordered By: Shannan Goldman Referrals: Cheyanne Browne MD [Physician] - 7-10 days (call for appointment) Aniya Mota MD [Primary Care Provider] - 1-3 days Discharge Diet: Usual diet Patient Instructions: Migraine Headache (ED) Activity Restrictions/Additional Instructions: Thank you for choosing [facility] for your healthcare needs today. Please realize this is an emergency room and that we are providing you with a medical screening exam and this may not be complete and all inclusive of all the testing and or work up that you may need to determine your ailment or severity of your illness. You have been screened and evaluated and felt safe for discharge. Health conditions do change or evolve sometimes and as such it is important that you follow up with your Primary Doctor to be re checked, 3-5 days is a general good time frame for follow up. You are always welcome to return to the ED for re assessment if your symptoms are worsening or you have new concerns Coding Level of Care Code ED Surgical Physician Assistant for Charli Connelly
[2023-10-22] MEDS: diphenhydrAMINE 50 mg/mL SDV 1mL IVP (08:24)
[2023-10-22] MEDS: metoclopramide 5 mg/mL SDV 2 mL 10 MG IVP (08:24)
[2023-10-22] MEDS: ketorolac 30 mg/mL INJ IVP (08:26)
[2023-10-22] MEDS: dexamethasone 10 mg/mL INJ IVP (08:28)
[2023-10-22] MEDS: sodium chloride 0.9% 1,000 ML 999 ML IV (08:28)
[2023-10-22 08:31] VITALS: PULSE 97; O2SAT 100
[2023-10-22 09:27] VITALS: PULSE 86; O2SAT 97
== END 2023-10-22 09:32 | disposition home or self-care (01) ==
PROVIDERS: Emergency Provider Emergency Medicine; PCP Internal Medicine
DX: G43.919 Migraine, unspecified, intractable, without status migrainosus (principal)
CPT/HCPCS: 96374; 96375; 99284; J1100; J1200; J1885; J2405; J2765; J7030

== ENCOUNTER 2023-11-25 14:05 | Outpatient (CLI) | payer MEDICAID, SELFPAY ==
--- NOTE | 2023-11-25 14:30 | MR_ITS ---
WS: [id number] MRI BRAIN WITHOUT CONTRAST HISTORY: NEUROFIBROMATOSIS TYPE I/MIGRAINE COMPARISON: 06/23/2017 TECHNIQUE: Diffusion imaging, multiplanar T1, T2 and FLAIR imaging obtained. Diffusion imaging is normal. Since the prior MRI from 2018 there has been an improvement in the white matter FLAIR and signal hyperintensities overall. There are a few areas of increased FLAIR signal pr edominantly within the medial temporal lobes. Signal within the cerebellum appears to have resolved. There are a few additional scattered T2 and FLAIR signal hyperintensities in the subcortical white ma tter which have not progressed. No area of infarct. No remote or acute infarcts are volume loss. Ventricles and extra-axial spaces are normal. Again noted is very slight anterior displacement of the cerebellar tonsils by 3 mm. Less inferior bernice cent of the tonsils as compared to 06/23/2017. There is no hydrocephalus. The fourth ventricle is norm al. Normal hippocampal formations. No significant widening or increased soft tissue along the interna l or external auditory canals. Dural venous sinuses and qawalangin of Hernandez demonstrate no abnormality on this unenhanced studies. Paranasal sinuses: Very minimal mucoperiosteal thickening in the sinuses. No air-fluid levels. Mastoid air cells: Normal. Calvarium and scalp: Intact. MR/MR head wo con* [id number] IMPRESSION: 1. No acute infarct or prior hemorrhage. 2. Significant improvement in the T2 and FLAIR signal hyperintensities describ ed on the prior study of 06/23/2017. There is mild persistent increased signal i n the medial temporal lobes which is probably associated with history of neurof ibromatosis. No overall progression. 3. 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 There is less inferior ex tent of the cerebellar tonsils now measuring 3 mm. 4. No hydrocephalus. 5. No mass or soft tissue thickening along the internal auditory canals.
== END 2023-11-25 14:06 | disposition home or self-care (01) ==
PROVIDERS: PCP Internal Medicine; Visit Provider Family Medicine
DX: Q85.01 Neurofibromatosis, type 1 (principal); G43.009 Migraine without aura, not intractable, without status migrainosus; G93.5 Compression of brain
CPT/HCPCS: 70551

== ENCOUNTER 2023-12-05 16:02 | Emergency (ER) | payer MEDICAID, SELFPAY ==
[2023-12-05 16:22] VITALS: BP 107/76; PULSE 96; RESP 16; TEMP 36.7; O2SAT 98; BMI 22.0
--- NOTE | 2023-12-05 16:58 | W.ED.HA ---
HPI - Headache General: Chief Complaint: Headache Stated Complaint: headache Time Seen by Provider: 12/05/23 16:44 History of Present Illness: 23-year-old female with a history of migraines who presents emergency room with a migraine. She is seen neurology but the medication she had she either could not get with Medicaid or they did not work so she did take some ibuprofen yesterday but has not taken any medications today. She has had nausea but no vomiting. She has had photophobia and phonophobia. Generalized headache. No altered mental status. No focal motor deficits. Related Data Home Medications Medication Instructions Recorded Confirmed control IM 06/17/21 05/22/23 Previous Rx's Medication Instructions Recorded albuterol sulfate 90 mcg/actuation 2 puff inhalation Q6H PRN 06/17/21 aerosol inhaler (Ventolin HFA) shortness of breath or wheezing #8.5 grams montelukast 10 mg tablet 10 mg PO DAILY 4 months #120 tabs 08/21/22 (Singulair) fremanezumab-vfrm 225 mg/1.5 mL See Rx Instructions .Route 12/09/22 subcutaneous auto-injector (Ajovy) .COMPLEX #1.5 mL sumatriptan succinate 100 mg See Rx Instructions PO .COMPLEX 12/09/22 tablet (Imitrex) #10 tabs benzonatate 100 mg capsule 100 mg PO TID PRN cough #20 caps 05/22/23 hydrocodone 5 mg-acetaminophen 325 1 tab PO Q6H PRN pain #7 tabs 05/29/23 mg tablet Allergies Allergy/AdvReac Type Severity Reaction Status Date / Time No Known Allergies Allergy Verified 10/22/23 07:26 Review of Systems Narrative: Constitutional symptoms: Negative except as documented in HPI. Skin symptoms: Negative except as documented in HPI. Eye symptoms: Negative except as documented in HPI. ENMT symptoms: Negative except as documented in HPI. Respiratory symptoms: Negative except as documented in HPI. Cardiovascular symptoms: Negative except as documented in HPI. Gastrointestinal symptoms: Negative except as documented in HPI. Genitourinary symptoms: Negative except as documented in HPI. Musculoskeletal symptoms: Negative except as documented in HPI. Neurologic symptoms: Negative except as documented in HPI. Psychiatric symptoms: Negative except as documented in HPI. Endocrine symptoms: Negative except as documented in HPI. PFS ED PFSH: Medical History Participant in health and wellness plan Scoliosis Neurofibromatosis, type 1 Allergic rhinitis due to allergen Family History Grandmother Stroke Social History Smoking and tobacco/nicotine status: never used tobacco/nicotine Second hand smoke exposure: No Alcohol intake: never Substance/Drug Use: never Physical Exam Narrative: EXAM NARRATIVE: General: Alert, no acute distress. Skin: Warm, dry. Head: Normocephalic, atraumatic. Neck: Supple, trachea midline. Eye: Extraocular movements are intact. Ears, nose, mouth and throat: mucosa moist. Cardiovascular: Regular, Normal peripheral perfusion. Respiratory: Lungs are clear to auscultation, respirations are non-labored, breath sounds are equal, Symmetrical chest wall expansion. Gastrointestinal: Soft, Nontender, Non distended Musculoskeletal: Normal ROM, no deformity. Neurological: Alert and oriented, No focal neurological deficit observed. Psychiatric: Cooperative, appropriate mood & affect. Course Vital Signs: Vital signs: Vital Signs Temperature 98.1 F 12/05/23 16:22 Pulse Rate 96 12/05/23 16:22 Respiratory Rate 16 12/05/23 16:22 Blood Pressure 107/76 12/05/23 16:22 Pulse Oximetry 98 12/05/23 16:22 Oxygen Delivery Me thod Room Air 12/05/23 16:22 MDM - Headache Medical Decision Making Medical decision making: Differential diagnosis for this patient presenting with severe headache including but not limited to and based on the above HPI, review of systems and physical exam: Intracranial hemorrhage, stroke, migraine, cluster headache, infections such as influenza, covid I reviewed the patient's medical record. Reexamination: Patient reports this is just like her old headaches. She just needs treatment here. No workup for anything acute today. Assessment and plan: Migraine headache -IV Toradol, Zofran, Reglan, Benadryl and Norflex. - Discharged home - Discussed plan with patient. Answered any questions. - Evaluation and treatment of this problem were appropriate in the emergency setting. No radiology studies performed this visit Discharge Plan Discharge Patient Disposition: Home Clinical Impression: Migraine Condition: Stable Prescriptions: No Action Ajovy Autoinjector 225 mg/1.5 mL auto-injector See Rx Instructions .ROUTE .COMPLEX Qty: 1.5 11RF Dose Instruction: INJECY CONTENTS OF ONE PEN UNDER THE SKIN ONCE A MONTH Rx Instructions: INJECY CONTENTS OF ONE PEN UNDER THE SKIN ONCE A MONTH sumatriptan succinate [Imitrex] 100 mg tablet See Rx Instructions PO .COMPLEX Qty: 10 5RF Rx Instructions: take 1 tab at onset of headache; if no relief, may repeat 1 tab after at least 2 hrs; max = 2 tabs/24 hrs PO control IM albuterol sulfate [Ventolin HFA] 90 mcg/actuation HFA aerosol inhaler 2 puff inhalation Q6H PRN (Reason: shortness of breath or wheezing) Qty: 8.5 0RF montelukast [Singulair] 10 mg tablet 10 mg PO DAILY 120 Days Qty: 120 0RF benzonatate 100 mg capsule 100 mg PO TID PRN (Reason: cough) Qty: 20 0RF hydrocodone-acetaminophen 5-325 mg tablet 1 tab PO Q6H PRN (Reason: pain) Qty: 7 0RF Discharge Orders: Discharge ED (Routine); Ordered 12/05/23 Ordered By: Shannan Goldman Referrals: Aniya Mota MD [Primary Care Provider] - Patient Instructions: Opioid Safety, Pain Management Coding Level of Care Code ED Patient Scheduling Coordinator for Charli Connelly
[2023-12-05 17:22] VITALS: BP 102/64; PULSE 87; RESP 18; O2SAT 99
[2023-12-05] MEDS: metoclopramide 5 mg/mL SDV 2 mL 10 MG IVP (17:39)
[2023-12-05] MEDS: ketorolac 30 mg/mL INJ IVP (17:39)
[2023-12-05] MEDS: diphenhydrAMINE 50 mg/mL SDV 1mL IVP (17:39)
[2023-12-05] MEDS: orphenadrine 30 mg/mL Inj 2 mL 60 MG IVP (17:39)
[2023-12-05] MEDS: ondansetron 2 mg/ML SDV 2 mL 8 MG IVP (17:39)
[2023-12-05 18:15] VITALS: BP 104/68; PULSE 73; O2SAT 98
== END 2023-12-05 18:15 | disposition home or self-care (01) ==
PROVIDERS: Emergency Provider Emergency Medicine; PCP Internal Medicine
DX: G43.909 Migraine, unspecified, not intractable, without status migrainosus (principal)
CPT/HCPCS: 96374; 96375; 99284; J1200; J1885; J2360; J2405; J2765

== ENCOUNTER → 2023-12-10 08:27 | Outpatient (BNVA) | payer MEDICAID, SELFPAY | PROVIDERS: PCP Internal Medicine; Visit Provider Specialist | DX: G43.711 Chronic migraine without aura, intractable, with status migrainosus (principal); G93.9 Disorder of brain, unspecified; Q85.01 Neurofibromatosis, type 1; G43.909 Migraine, unspecified, not intractable, without status migrainosus | CPT/HCPCS: 99214 ==

== ENCOUNTER 2024-02-27 18:10 | Emergency (ER) | payer MEDICAID, SELFPAY ==
[2024-02-27 18:30] VITALS: BP 116/78; PULSE 101; RESP 14; TEMP 36.7; O2SAT 98
--- NOTE | 2024-02-27 18:40 | W.ED.HA ---
HPI - Headache General: Chief Complaint: Headache Stated Complaint: migraine Time Seen by Provider: 02/27/24 18:26 Source: patient Mode of arrival: ambulatory Limitations: no limitations History of Present Illness: Patient is a 23-year-old female who presents to ED today with complaint of a migraine headache. She states she is longstanding history of migraine headaches and states her headache today feels identical to previous migraines. She states on a monthly basis she will get approximately 7-8 headaches. She does follow-up with Dr. Browne. She has been on previous medications for her migraines but these have been ineffective. She states they are awaiting Botox. Patient states she has had to come to the emergency department before for migraine headaches and the typical migraine cocktail usually works very well for her. MD elicited complaint: migraine Pertinent past history: migraines Onset (ago): day(s) Severity: severe Pain scale (0-10): 9 Exacerbating factors: light Relieving factors: nothing Associated symptoms: Reports no associated symptoms; Deny chest pain, fever(s), malaise, nausea, rash or vomiting Treatments prior to arrival: none Related Data Home Medications Medication Instructions Recorded Confirmed control IM 06/17/21 02/09/24 Previous Rx's Medication Instructions Recorded albuterol sulfate 90 mcg/actuation 2 puff inhalation Q6H PRN 06/17/21 aerosol inhaler (Ventolin HFA) shortness of breath or wheezing #8.5 grams montelukast 10 mg tablet 10 mg PO DAILY 4 months #120 tabs 08/21/22 (Singulair) benzonatate 100 mg capsule 100 mg PO TID PRN cough #20 caps 05/22/23 onabotulinumtoxinA 100 unit 100 unit IM ONCE #2 ea 12/10/23 solution for injection (Botox) rizatriptan 10 mg tablet (Maxalt) See Rx Instructions PO .COMPLEX 12/10/23 #10 tabs azithromycin 250 mg tablet See Rx Instructions PO .COMPLEX #6 02/09/24 tabs Allergies Allergy/AdvReac Type Severity Reaction Status Date / Time No Known Allergies Allergy Verified 02/27/24 18:35 Review of Systems Const: Denies: fever(s), chills, body aches, fatigue or malaise Card: Denies: chest pain Resp: Denies: dyspnea GI: Denies: abdominal pain, nausea, vomiting, diarrhea or constipation Musc: Denies: neck pain Skin/Breast: Denies: rash Neuro: Reports: headache(s); Denies: numbness in extremities, weakness in extremities, sensory changes, difficulty walking, dizziness, vertigo, behavioral changes or seizure-like activity [facility] ED PFSH: Medical History Participant in health and wellness plan Scoliosis Neurofibromatosis, type 1 Allergic rhinitis due to allergen Family History Grandmother Stroke Father Migraines Social History Smoking and tobacco/nicotine status: never used tobacco/nicotine Second hand smoke exposure: No Alcohol intake: never Substance/Drug Use: never Female Reproductive History: Date of last menstrual period: 02/16/24 Physical Exam Const: COMMON NORMALS: no acute distress, average body habitus, patient oriented x3, no limitations, healthy appearing, alert and well nourished ORIENTATION/CONSCIOUSNESS: Yes awake, Yes oriented to person, Yes oriented to place and Yes oriented to time HENMT: COMMON NORMALS: normocephalic and atraumatic HEAD & SCALP: normal to inspection, normocephalic and atraumatic FACE & SINUS: normal facial exam and face symmetric Eye: GENERAL EYE: appearance normal, both eyes and all related structures and normal light reflex DIRECT OPHTHALMOSCOPY: Yes normal light reflex Neck/C-Spine: COMMON NORMALS: no meningeal signs Resp: COMMON NORMALS: normal respiratory effort Cardio: COMMON NORMALS: regular rate and regular rhythm RATE: regular rate RHYTHM: regular rhythm Neuro: OLIVIA COMA SCALE: document GCS findings Olivia coma scale eye opening: Spontaneous [place] coma scale verbal response: Orientated [place] coma scale motor response: Obey commands [place] coma scale total score: 15 COMMON NORMALS: patient oriented x3, CN's II-XII intact bilaterally, moves all extremities, no focal motor deficits, no sensory deficits noted and gait normal SENSORIUM/ORIENTATION: Yes alert, Yes oriented to person, Yes oriented to place and Yes oriented to time MENINGEAL SIGNS: Yes no meningeal signs Course Vital Signs: Vital signs: Vital Signs Temperature 98.0 F 02/27/24 18:30 Pulse Rate 119 H 02/27/24 19:19 Respiratory Rate 14 02/27/24 19:19 Blood Pressure 116/78 02/27/24 18:30 Pulse Oximetry 99 02/27/24 19:19 Oxygen Delivery Me thod Room Air 02/27/24 19:19 MDM - Headache Medical Decision Making Patient here for migraine headache. She feels significantly improved after IV medication cocktail. She feels comfortable going home at this time. Return to ED precautions given. Medical Records I reviewed the patient's medical records. No radiology studies performed this visit Discharge Plan Discharge Patient Disposition: Home Clinical Impression: Migraine Qualifiers: Migraine type: unspecified Status migrainosus presence: with status migrainosus Intractability: not intractable Qualified Code(s): G43.901 - Migraine, unspecified, not intractable, with status migrainosus Condition: Stable Prescriptions: No Action Botox 100 unit recon soln 100 unit IM ONCE Qty: 2 5RF Rx Instructions: fda approved protocol for chronic migraine rizatriptan [Maxalt] 10 mg tablet See Rx Instructions PO .COMPLEX Qty: 10 3RF Rx Instructions: take 1 tab at onset of headache; if no relief may repeat 1 tab after at least 2 hrs; max = 3 control IM albuterol sulfate [Ventolin HFA] 90 mcg/actuation HFA aerosol inhaler 2 puff inhalation Q6H PRN (Reason: shortness of breath or wheezing) Qty: 8.5 0RF montelukast [Singulair] 10 mg tablet 10 mg PO DAILY 120 Days Qty: 120 0RF benzonatate 100 mg capsule 100 mg PO TID PRN (Reason: cough) Qty: 20 0RF azithromycin 250 mg tablet See Rx Instructions PO .COMPLEX Qty: 6 0RF Rx Instructions: For 250 mg dose pack: take 500 mg today (day 1), then 250 mg for 4 days (days 2-5) PO Discharge Orders: Discharge ED (Routine); Ordered 02/27/24 Ordered By: Krupa Dugan Patient Instructions: Headache - Migraine (Adult), Migraine Headache (ED) Coding Level of Care Code ED Ux Consultant for Charli Connelly
[2024-02-27] MEDS: metoclopramide 5 mg/mL SDV 2 mL 10 MG IVP (19:13)
[2024-02-27] MEDS: diphenhydrAMINE 50 mg/mL SDV 1mL IVP (19:16)
[2024-02-27] MEDS: ketorolac 30 mg/mL INJ IVP (19:18)
[2024-02-27 19:19] VITALS: PULSE 119; RESP 14; O2SAT 99
[2024-02-27 20:20] VITALS: BP 100/71; PULSE 95; RESP 16; O2SAT 96
== END 2024-02-27 20:18 | disposition home or self-care (01) ==
PROVIDERS: Emergency Provider Physician Assistant
DX: G43.901 Migraine, unspecified, not intractable, with status migrainosus (principal)
CPT/HCPCS: 96374; 96375; 99284; J1200; J1885; J2765

== ENCOUNTER → 2024-03-12 13:56 | Outpatient (BNVA) | payer MEDICAID, SELFPAY | PROVIDERS: Visit Provider Specialist | DX: G43.711 Chronic migraine without aura, intractable, with status migrainosus (principal); Q85.01 Neurofibromatosis, type 1 | CPT/HCPCS: 64615; J0585 ==

== ENCOUNTER 2024-05-17 01:08 | Emergency (ER) | payer MEDICAID, SELFPAY ==
[2024-05-17] VITALS (7 sets, daily range): BP systolic 111–124; BP diastolic 76–89; PULSE 101–129; RESP 16–18; TEMP 36.9; O2SAT 99–100; BMI 21.7
--- NOTE | 2024-05-17 01:22 | ED_ITS ---
HPI - Headache General: Chief Complaint: Headache Stated Complaint: Migrane Time Seen by Provider: 05/17/24 01:12 Source: patient Mode of arrival: ambulatory Limitations: no limitations History of Present Illness: 43-year-old female with a history of saul chuck states she had a migraine that started roughly 2 to 3 hours ago. States it feels like her previous migraine she has photophobia and phonophobia denies any fevers denies any neck pain. She rates her headache a 9 out of 10. Associated symptoms: Deny chest pain, fever(s), nausea, rash or vomiting Related Data Home Medications ?Medication ?Instructions ?Recorded ?Confirmed control IM 06/17/21 04/22/24 Previous Rx's ?Medication ?Instructions ?Recorded albuterol sulfate 90 mcg/actuation 2 puff inhalation Q 6H PRN 06/17/21 aerosol inhaler (Ventolin HFA) shortness of breath or wheezing #8.5 grams montelukast 10 mg tablet 10 mg PO DAILY 4 months #120 tabs 08/21/22 (Singulair) benzonatate 100 mg capsule 100 mg PO TID PRN cough #20 caps 05/22/23 onabotulinumtoxinA 100 unit 100 unit IM ONCE #2 ea 02/21 solution for injection (Botox) rizatriptan 10 mg tablet (Maxalt) See Rx Instructions PO .COMPLEX 12/10/23 #10 tabs diazepam 10 mg tablet 10 mg PO ONCE PRN anxiety 24 hours 03/12/24 #1 tab amoxicillin 875 mg tablet 875 mg PO BID #20 tabs 04/22 Allergies Allergy/AdvReac Type Severity Reaction Status Date / Time No Known Allergies Allergy Verified 05/17/24 01:20 Review of Systems Const: Denies: fever(s), chills, body aches or change in appetite Eyes: Denies: blurry vision or eye discomfort ENMT: Denies: throat pain or dental pain Card: Denies: chest pain Resp: Denies: dyspnea GI: Denies: abdominal pain, nausea, vomiting or diarrhea Musc: Denies: neck pain or back pain Skin/Breast: Denies: rash Neuro: Reports: headache(s) PFSH ED PFSH: Medical History Participant in health and wellness plan Scoliosis Neurofibromatosis, type 1 Allergic rhinitis due to allergen Family History Grandmother Stroke Father Migraines Social History Smoking and tobacco/nicotine status: never used tobacco/nicotine Second hand smoke exposure: No Alcohol intake: never Substance/Drug Use: never Female Reproductive History: Date of last menstrual period: 04/27/24 Physical Exam Const: COMMON NORMALS: no acute distress, patient oriented x3 and healthy appearing HENMT: COMMON NORMALS: normocephalic and atraumatic HEAD & SCALP: normocephalic and atraumatic Eye: COMMON NORMALS: Equal, round and reactive pupils present and EOMs intact bilaterally PUPIL: Yes Equal, round and reactive pupils present Neck/C-Spine: COMMON NORMALS: full ROM and supple Chest: COMMONS NORMALS: normal inspection of the chest Resp: COMMON NORMALS: normal respiratory effort Cardio: COMMON NORMALS: regular rate RATE: regular rate Extremity: COMMON NORMALS: normal to inspection and full ROM Neuro: COMMON NORMALS: patient oriented x3, moves all extremities and no focal motor deficits Psych: COMMON NORMALS: mental status grossly normal, Normal thought process present and cooperative THOUGHT PROCESS: Normal thought process present Skin: COMMON NORMALS: no rashes or lesions noted and no wounds GENERAL SKIN EXAM: no rashes or lesions noted Course Vital Signs: Vital signs: Vital Signs Temperature 98.4 F 05/17/24 01:11 Pulse Rate 129 H 05/17/24 01:34 Respiratory Rate 16 05/17/24 01:34 Blood Pressure 122/89 05/17/24 01:34 Pulse Oximetry 100 05/17/24 01:34 Oxygen Delivery Me thod Room Air 05/17/24 01:11 MDM - Headache Medical Decision Making Patient presents here with a headache likely migraine headache her headache is resolved here she has no signs of meningitis or subarachnoid hemorrhage she is stable for discharge follow-up with PCP return if worsening Medical Records I reviewed the patient's medical records. No radiology studies performed this visit Discharge Plan Discharge Patient Disposition: Home Clinical Impression: Headache Condition: Stable Prescriptions: No Action Botox 100 unit recon soln 100 unit IM ONCE Qty: 2 5RF Rx Instructions: fda approved protocol for chronic migraine rizatriptan [Maxalt] 10 mg tablet See Rx Instructions PO .COMPLEX Qty: 10 3RF Rx Instructions: take 1 tab at onset of headache; if no relief may repeat 1 tab after at least 2 hrs; max = 3 control IM albuterol sulfate [Ventolin HFA] 90 mcg/actuation HFA aerosol inhaler 2 puff inhalation Q6H PRN (Reason: shortness of breath or wheezing) Qty: 8.5 0RF montelukast [Singulair] 10 mg tablet 10 mg PO DAILY 120 Days Qty: 120 0RF benzonatate 100 mg capsule 100 mg PO TID PRN (Reason: cough) Qty: 20 0RF diazepam 10 mg tablet 10 mg PO ONCE PRN (Reason: anxiety) 1 Days Qty: 1 3RF Rx Instructions: Take 1/2 prior to procedure and repeat if necessary amoxicillin 875 mg tablet 875 mg PO BID Qty: 20 0RF Discharge Orders: Discharge ED (Routine); Ordered 05/17/24 Ordered By: Ashleigh Trejo Referrals: Cheyanne Browne MD [Primary Care Provider] - 4-7 days Discharge Diet: Advance as tolerated Discharge Activity: Resume usual activity Patient Instructions: Migraine Headache (ED) Print Language: Swedish Coding Level of Care Code ED Title Assistant for Charli Connelly
[2024-05-17] MEDS: diphenhydrAMINE 50 mg/mL SDV 1mL IVP (01:28)
[2024-05-17] MEDS: metoclopramide 5 mg/mL SDV 2 mL 10 MG IVP (01:29)
== END 2024-05-17 02:22 | disposition home or self-care (01) ==
PROVIDERS: Emergency Provider Emergency Medicine; PCP Specialist
DX: R51.9 Headache, unspecified (principal)
CPT/HCPCS: 96374; 96375; 99284; J1200; J2765

== ENCOUNTER → 2024-06-11 14:43 | Outpatient (BNVA) | payer MEDICAID, SELFPAY | PROVIDERS: PCP Specialist; Visit Provider Specialist | DX: G43.711 Chronic migraine without aura, intractable, with status migrainosus (principal) | CPT/HCPCS: 64615; J0585; J9999 ==

== ENCOUNTER → 2024-06-22 10:04 | Outpatient (BNVA) | payer MEDICAID, SELFPAY | PROVIDERS: PCP Specialist; Visit Provider Nurse Practitioner Family | DX: F41.9 Anxiety disorder, unspecified (principal); F32.A Depression, unspecified | CPT/HCPCS: 80053; 80061; 82306; 82607; 83735; 84443; 85025 ==

== ENCOUNTER → 2024-06-30 09:27 | Outpatient (BNVA) | payer MEDICAID, SELFPAY | PROVIDERS: PCP Specialist; Visit Provider Nurse Practitioner Family | DX: E83.42 Hypomagnesemia (principal) | CPT/HCPCS: 83735 ==

== ENCOUNTER → 2024-07-27 10:16 | Outpatient (BNVA) | payer MEDICAID, SELFPAY | PROVIDERS: PCP Nurse Practitioner Family; Visit Provider Nurse Practitioner Family | DX: F41.9 Anxiety disorder, unspecified (principal); F32.A Depression, unspecified; R79.0 Abnormal level of blood mineral | CPT/HCPCS: 83735 ==

== ENCOUNTER 2024-08-17 20:18 | Emergency (ER) | payer MEDICAID, SELFPAY ==
[2024-08-17 20:18] VITALS: BP 114/80; PULSE 82; RESP 16; TEMP 36.5; O2SAT 99
--- NOTE | 2024-08-17 20:36 | W.ED.HA ---
HPI - Headache General: Chief Complaint: Headache Stated Complaint: MONREAL, n/v Time Seen by Provider: 08/17/24 20:28 Source: patient Mode of arrival: ambulatory Limitations: no limitations History of Present Illness: 24-year-old female who has a long history of migraine states she has had a migraine since this morning. States that she has photophobia phonophobia rates her headache a 9 out of 10 states feels like her previous migraines. Denies any fever neck pain Associated symptoms: Deny chest pain, fever(s), nausea, rash or vomiting Related Data Previous Rx's ?Medication ?Instructions ?Recorded onabotulinumtoxinA 100 unit 100 unit IM ONCE #2 ea 12/10/23 solution for injection (Botox) rizatriptan 10 mg tablet (Maxalt) See Rx Instructions PO .COMPLEX 12/10/23 #10 tabs albuterol sulfate 90 mcg/actuation 2 puff inhalation Q6H PRN 06/22/24 aerosol inhaler (Ventolin HFA) shortness of breath or wheezing #8.5 grams cholecalciferol (vitamin D3) 1,250 50,000 unit PO .once weekly #12 06/23/24 mcg (50,000 unit) capsule caps escitalopram oxalate 20 mg tablet 20 mg PO DAILY #30 tabs 07/27/24 magnesium 200 mg tablet 300 mg (1.5 x 200 mg) PO BID #90 07/29/24 tabs Allergies Allergy/AdvReac Type Severity Reaction Status Date / Time No Known Allergies Allergy Verified 08/17/24 20:19 Review of Systems Const: Denies: fever(s), chills, body aches or change in appetite Eyes: Denies: blurry vision or eye discomfort ENMT: Denies: throat pain or dental pain Card: Denies: chest pain Resp: Denies: dyspnea GI: Denies: abdominal pain, nausea, vomiting or diarrhea Musc: Denies: neck pain or back pain Skin/Breast: Denies: rash Neuro: Reports: headache(s) PFSH ED PFSH: Medical History Participant in health and wellness plan Scoliosis Neurofibromatosis, type 1 Allergic rhinitis due to allergen Family History Grandmother Stroke Father Migraines Social History Smoking and tobacco/nicotine status: never used tobacco/nicotine Second hand smoke exposure: No Alcohol intake: never Substance/Drug Use: never Female Reproductive History: Date of last menstrual period: 08/14/24 Physical Exam Const: COMMON NORMALS: no acute distress, patient oriented x3 and healthy appearing HENMT: COMMON NORMALS: normocephalic and atraumatic HEAD & SCALP: normocephalic and atraumatic Eye: COMMON NORMALS: conjunctivae normal CONJUNCTIVA: Yes conjunctivae normal Neck/C-Spine: COMMON NORMALS: full ROM and supple Chest: COMMONS NORMALS: normal inspection of the chest Resp: COMMON NORMALS: normal respiratory effort Cardio: COMMON NORMALS: regular rate RATE: regular rate Extremity: COMMON NORMALS: normal to inspection and full ROM Neuro: COMMON NORMALS: patient oriented x3, moves all extremities and no focal motor deficits Psych: COMMON NORMALS: mental status grossly normal, Normal thought process present and cooperative THOUGHT PROCESS: Normal thought process present Skin: COMMON NORMALS: no rashes or lesions noted and no wounds GENERAL SKIN EXAM: no rashes or lesions noted Course Vital Signs: Vital signs: Vital Signs Temperature 97.7 F 08/17/24 20:18 Pulse Rate 82 08/17/24 20:18 Respiratory Rate 16 08/17/24 20:18 Blood Pressure 114/80 08/17/24 20:18 Pulse Oximetry 99 08/17/24 20:18 Oxygen Delivery Me thod Room Air 08/17/24 20:18 MDM - Headache Medical Decision Making Patient presents here with a migraine headache she feels much improved here after meds she is stable for discharge follow-up PCP return if worsening. Medical Records I reviewed the patient's medical records. No radiology studies performed this visit Discharge Plan Discharge Patient Disposition: Home Clinical Impression: Migraine Condition: Stable Prescriptions: No Action Botox 100 unit recon soln 100 unit IM ONCE Qty: 2 5RF Rx Instructions: fda approved protocol for chronic migraine rizatriptan [Maxalt] 10 mg tablet See Rx Instructions PO .COMPLEX Qty: 10 3RF Rx Instructions: take 1 tab at onset of headache; if no relief may repeat 1 tab after at least 2 hrs; max = 3 escitalopram oxalate 20 mg tablet 20 mg PO DAILY Qty: 30 2RF albuterol sulfate [Ventolin HFA] 90 mcg/actuation HFA aerosol inhaler 2 puff inhalation Q6H PRN (Reason: shortness of breath or wheezing) Qty: 8.5 1RF cholecalciferol (vitamin D3) 1,250 mcg (50,000 unit) capsule 50,000 unit PO .once weekly Qty: 12 0RF magnesium 200 mg tablet 300 mg PO BID Qty: 90 0RF Discharge Orders: Discharge ED (Routine); Ordered 08/17/24 Ordered By: Ashleigh Trejo Referrals: Destini Cerda FNP [Primary Care Provider, Family Practice] - 4-7 days Discharge Diet: Advance as tolerated Discharge Activity: Resume usual activity Patient Instructions: Migraine Headache (ED) Print Language: Ivorian Coding Level of Care Code ED Planer Setter for Charli Connelly
[2024-08-17] MEDS: sodium chloride 0.9% 1,000 ML 999 ML IV (20:40)
[2024-08-17] MEDS: ketorolac 30 mg/mL INJ IVP (20:41)
[2024-08-17] MEDS: metoclopramide 5 mg/mL SDV 2 mL 10 MG IVP (20:42)
[2024-08-17] MEDS: diphenhydrAMINE 50 mg/mL SDV 1mL IVP (20:42)
[2024-08-17 21:16] VITALS: BP 93/68; PULSE 71; O2SAT 99
== END 2024-08-17 21:17 | disposition home or self-care (01) ==
PROVIDERS: Emergency Provider Emergency Medicine; PCP Nurse Practitioner Family
DX: G43.909 Migraine, unspecified, not intractable, without status migrainosus (principal)
CPT/HCPCS: 96361; 96374; 96375; 99284; J1200; J1885; J2765; J7030

== ENCOUNTER 2024-10-06 19:54 | Emergency (ER) | payer MEDICAID, SELFPAY ==
[2024-10-06 20:02] VITALS: BP 128/87; PULSE 102; TEMP 36.9; O2SAT 97; BMI 20.5
--- NOTE | 2024-10-06 20:09 | ECG_ITS ---
[facility] Test Date: 2024-10-06 Pat Name: Mona Leon Department: Room: Gender: Female Communications Consultant: : 2000 Requested By: Joshua Santizo Order Number: [id number] Dennis MD: Marcella Chance M.D. Measurements Intervals [place] Rate: 97 P: 72 NV: 151 QRS: 97 QRSD: 86 T: 13 QT: 321 QTc: 409 Interpretive Statements SINUS RHYTHM BORDERLINE RIGHT AXIS DEVIATION [QRS AXIS > 90] ST DEVIATION AND MODERATE T-WAVE ABNORMALITY, CONSIDER ANTERIOR ISCHEMIA [-0.1+ mV T-WAVE IN V3/V4] No previous ECG available for comparison Electronically Signed On 10-06-2024 20:16:34 CDT by Marcella Chance M.D. [email or web address]
[2024-10-06 20:36] VITALS: BP 112/84; PULSE 101; RESP 16; TEMP 36.9; O2SAT 100
[2024-10-06] MEDS: diphenhydrAMINE 50 mg/mL SDV 1mL 25 MG IVP (21:03)
--- NOTE | 2024-10-06 21:26 | W.ED.HA ---
HPI - Headache General: Chief Complaint: Headache Stated Complaint: migraine feels dehydrated passed out Time Seen by Provider: 10/06/24 20:41 History of Present Illness: Patient is a 24-year-old female who presents to the ED with complaint of headache that started approximately 2 hours prior to arrival, around noon today. She reports this headache is consistent with her typical migraine pattern. The patient has a known history of migraines for which she receives Botox injections as preventative therapy. She reports associated nausea but denies vomiting, fever, or neck pain. Patient states that her migraines typically progress to the point where she requires emergency care approximately once a month, with her last ED visit for migraine occurring approximately one month ago. The patient also mentions occasional chest pains but provides no further details about this symptom. She denies any other associated symptoms. No pre-hospital interventions or medications were reported. Related Data Previous Rx's ?Medication ?Instructions ?Recorded onabotulinumtoxinA 100 unit 100 unit IM ONCE #2 ea 12/10/23 solution for injection (Botox) rizatriptan 10 mg tablet (Maxalt) See Rx Instructions PO .COMPLEX 12/10/23 #10 tabs albuterol sulfate 90 mcg/actuation 2 puff inhalation Q6H PRN 06/22/24 aerosol inhaler (Ventolin HFA) shortness of breath or wheezing #8.5 grams cholecalciferol (vitamin D3) 1,250 50,000 unit PO .once weekly #12 06/23/24 mcg (50,000 unit) capsule caps escitalopram oxalate 20 mg tablet 20 mg PO DAILY #30 tabs 07/27/24 magnesium 200 mg tablet 300 mg (1.5 x 200 mg) PO BID #90 07/29/24 tabs azithromycin 250 mg tablet See Rx Instructions PO .COMPLEX #6 09/14/24 tabs diazepam 10 mg tablet 10 mg PO ONCE PRN anxiety 24 hours 09/15/24 #1 tab Allergies Allergy/AdvReac Type Severity Reaction Status Date / Time No Known Allergies Allergy Verified 10/06/24 20:07 [facility] ED PFS: Medical History (Updated 10/06/24 @ 21:27 by Harpal Colin MD) Participant in health and wellness plan Scoliosis Neurofibromatosis, type 1 Allergic rhinitis due to allergen Family History Grandmother Stroke Father Migraines Social History Smoking and tobacco/nicotine status: never used tobacco/nicotine Second hand smoke exposure: No Alcohol intake: never Substance/Drug Use: never Course Vital Signs: Vital signs: Vital Signs Temperature 98.4 F 10/06/24 20:36 Pulse Rate 101 H 10/06/24 20:36 Respiratory Rate 16 10/06/24 20:36 Blood Pressure 112/84 10/06/24 20:36 Pulse Oximetry 100 10/06/24 20:36 Oxygen Delivery Me thod Room Air 10/06/24 20:36 MDM - Headache Medical Decision Making ROS: Constitutional: Denies fever. HEENT: Positive for headache. Denies neck pain. Cardiovascular: Reports occasional chest pains, not further characterized. Gastrointestinal: Positive for nausea. Denies vomiting. Neurological: Denies focal deficits. All other systems reviewed and negative. 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 Patient denies . Not currently on control. PHYSICAL EXAM: General: Well-appearing female in no acute distress. HEENT: Mucous membranes moist. Pupils equal, round, reactive to light. Neck: Supple. Respiratory: No increased work of breathing, no wheezing. Cardiac: Regular rate and rhythm, 2+ pulses in all extremities. Abdomen: Soft, non-distended, no rebound or guarding. Neuro: No focal neurologic deficits. Cranial nerves grossly intact, no focal motor or sensory deficits noted. INITIAL IMPRESSION AND PLAN: Given the history and presentation, the primary working diagnosis is migraine headache. Additional considerations include dehydration, medication overuse headache, and intracranial pathology, though the latter is less likely given the patient's typical migraine pattern and absence of concerning features. Based on this initial impression I will order: 1. IV fluids: 1 liter of normal saline 2. Anti-emetic: 10 mg Compazine IV 3. Antihistamine: 25 mg Benadryl IV 4. Steroid: 10 mg dexamethasone IV 5. Pain management: 15 mg Toradol IV Will reassess after treatment administration. CONSIDERED BUT NOT PERFORMED: Head CT was considered but not performed due to patient's presentation being consistent with her typical migraine pattern, absence of focal neurological deficits, and rapid response to standard migraine therapy. FINAL IMPRESSION: Based on all the above, my clinical impression is most compatible with acute migraine headache with associated nausea. The clinical picture is not currently suggestive of intracranial hemorrhage, meningitis, or cerebral venous thrombosis. Although other conditions were also considered, they were deemed unlikely based on the clinical information available. CLINICAL DISPOSITION: The patient's current condition is stable and significantly improved in my estimation and the most appropriate and indicated disposition at this time is discharge home. The patient is safe for discharge home as she has experienced almost complete resolution of her symptoms following standard migraine therapy. She is well-appearing, has no focal neurological deficits, and is eager for discharge. Her presentation was consistent with her known history of migraines, and she responded appropriately to treatment. She has demonstrated capacity to understand discharge instructions and return precautions. RISK STRATIFICATION AND CLINICAL DECISION RULES APPLIED: No formal clinical decision rules were applied in this case. The patient's presentation was consistent with her known history of migraines, she had no focal neurological deficits, and she responded well to standard migraine therapy, supporting the diagnosis and management plan. CASE SUMMARY: 24-year-old female with history of migraines presented with a typical migraine headache of 2-hour duration associated with nausea. Patient has history of receiving Botox injections for migraine prevention. Physical examination revealed a well-appearing female with moist mucous membranes and no focal neurological deficits. Treatment included IV fluids (1L normal saline), Compazine 10mg IV, Benadryl 25mg IV, dexamethasone 10mg IV, and Toradol 15mg IV. Upon reassessment at 9:25 PM, patient reported significant improvement in symptoms, almost complete resolution of headache, and was eager for discharge. Patient was provided with return precautions and discharged home in stable condition. No radiology studies performed this visit Discharge Plan Discharge Patient Disposition: Home Clinical Impression: Headache Condition: Stable Prescriptions: No Action Botox 100 unit recon soln 100 unit IM ONCE Qty: 2 5RF Rx Instructions: fda approved protocol for chronic migraine rizatriptan [Maxalt] 10 mg tablet See Rx Instructions PO .COMPLEX Qty: 10 3RF Rx Instructions: take 1 tab at onset of headache; if no relief may repeat 1 tab after at least 2 hrs; max = 3 escitalopram oxalate 20 mg tablet 20 mg PO DAILY Qty: 30 2RF azithromycin 250 mg tablet See Rx Instructions PO .COMPLEX Qty: 6 0RF Rx Instructions: For 250 mg dose pack: take 500 mg today (day 1), then 250 mg for 4 days (days 2-5) PO albuterol sulfate [Ventolin HFA] 90 mcg/actuation HFA aerosol inhaler 2 puff inhalation Q6H PRN (Reason: shortness of breath or wheezing) Qty: 8.5 1RF cholecalciferol (vitamin D3) 1,250 mcg (50,000 unit) capsule 50,000 unit PO .once weekly Qty: 12 0RF magnesium 200 mg tablet 300 mg PO BID Qty: 90 0RF diazepam 10 mg tablet 10 mg PO ONCE PRN (Reason: anxiety) 1 Days Qty: 1 3RF Rx Instructions: Take 1/2 prior to procedure and repeat if necessary Discharge Orders: Discharge ED (Routine); Ordered 10/06/24 Ordered By: Harpal Colin Referrals: Destini Cerda FNP [Primary Care Provider, Family Practice] Patient Instructions: Acute Headache (DC), Opioid Safety, Pain Management, Patient Portal & Julia Instructions Activity Restrictions/Additional Instructions: Instructions: 1. Rest in a quiet, dark room as needed 2. Stay well-hydrated by drinking plenty of fluids 3. Continue your regular migraine prevention regimen including Botox injections 4. Consider [id number] pain medications such as acetaminophen or ibuprofen for mild headaches 5. 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
[2024-10-06 21:43] VITALS: BP 97/65; PULSE 99; RESP 16; O2SAT 100
== END 2024-10-06 21:44 | disposition home or self-care (01) ==
PROVIDERS: Emergency Provider Student in an Organized Health Care Education/Training Program; PCP Nurse Practitioner Family
DX: R51.9 Headache, unspecified (principal)
CPT/HCPCS: 93005; 96361; 96374; 96375; 99284; J0780; J1100; J1200; J1885; J7030

== ENCOUNTER 2024-11-21 09:05 | Emergency (ER) | payer MEDICAID, SELFPAY ==
[2024-11-21 09:17] VITALS: BP 120/74; PULSE 85; RESP 18; TEMP 36.6; O2SAT 99; BMI 23.4
--- NOTE | 2024-11-21 09:32 | W.ED.HA ---
HPI - Headache General: Chief Complaint: Headache Stated Complaint: Headache Time Seen by Provider: 11/21/24 09:08 History of Present Illness: HPI: Patient with history of migraines has had progressive onset of a migraine that has been worsening over the last 3 days. Has come and gone over the last 3 days. Patient is requesting medication for resolution of her symptoms. Last menstrual cycle was approximately 1 month ago and no sexual activity since. Patient has no concerns at this time. Headache is described as global without persistent emesis but she does have slight nausea. Without vision changes, numbness, weakness, fevers, sweats, or chills. States exactly similar to prior episodes of migraines. REVIEW OF SYSTEMS: 10 systems reviewed and otherwise unremarkable except for those noted in HPI. PHYSCIAL EXAM: Triage vital signs reviewed Gen: A&O NAD HEENT: NCAT, EOMI, not icteric. External ears normal. No rhinorrhea. Moist mucous membranes. Neck: Supple, full range of motion, no observable masses, No meningeal sign. Lungs: No Respiratory distress. CV: RRR, no edema. Abdomen: Soft, nondistended, No rebound tenderness. MSK: No joint swelling, no redness. Skin: No rashes, petechiae, lesions. Normal color per patient. Neuro: Cranial nerves II, III, IV, and 6 intact bilaterally, visual hobson normal to confrontation in all quadrants, pupils equal and reactive to light and accommodation. Extraocular movements intact without nystagmus. Facial sensation intact bilaterally. Facial muscle strength is symmetrical. Hearing is normal bilaterally. Voice is normal. Moving shoulders bilaterally. Biceps, triceps, quadriceps, and hamstrings equal and strong bilaterally 5/5 Sensation and strength intact in upper and lower extremities. Negative Romberg, rapid movements normal gait steady without abnormality. Psych: Appropriate for situation. PROCEDURES: N/A Related Data Previous Rx's ?Medication ?Instructions ?Recorded onabotulinumtoxinA 100 unit 100 unit IM ONCE #2 ea 12/10/23 solution for injection (Botox) rizatriptan 10 mg tablet (Maxalt) See Rx Instructions PO .COMPLEX 12/10/23 #10 tabs albuterol sulfate 90 mcg/actuation 2 puff inhalation Q6H PRN 06/22/24 aerosol inhaler (Ventolin HFA) shortness of breath or wheezing #8.5 grams cholecalciferol (vitamin D3) 1,250 50,000 unit PO .once weekly #12 06/23/24 mcg (50,000 unit) capsule caps escitalopram oxalate 20 mg tablet 20 mg PO DAILY #30 tabs 07/27/24 magnesium 200 mg tablet 300 mg (1.5 x 200 mg) PO BID #90 07/29/24 tabs diazepam 10 mg tablet 10 mg PO ONCE PRN anxiety 24 hours 09/15/24 #1 tab ciprofloxacin 0.3 %-dexamethasone 4 drp otic (ear) BID 7 days #7.5 mL 10/18/24 0.1 % ear drops,suspension Allergies Allergy/AdvReac Type Severity Reaction Status Date / Time No Known Allergies Allergy Verified 10/18/24 11:31 [facility]: Medical History (Updated 11/21/24 @ 09:39 by Boris Martin MD) Participant in health and wellness plan Scoliosis Neurofibromatosis, type 1 Allergic rhinitis due to allergen Family History Grandmother Stroke Father Migraines Social History Smoking and tobacco/nicotine status: never used tobacco/nicotine Second hand smoke exposure: No Alcohol intake: never Substance/Drug Use: never Course Vital Signs: Vital signs: Vital Signs Temperature 97.9 F 11/21/24 09:17 Pulse Rate 85 11/21/24 09:17 Respiratory Rate 18 11/21/24 09:17 Blood Pressure 120/74 11/21/24 09:17 Pulse Oximetry 99 11/21/24 09:17 Oxygen Delivery Me thod Room Air 11/21/24 09:17 MDM - Headache Medical Decision Making MEDICAL DECISION MAKING: Differential diagnoses considered but not limited to: Occult intracranial hemorrhage, occult meningitis, migrainous headache, tension headache, electrolyte derangement, atypical vascular test reviewed. Vitals nonactionable. Given history, examination, and pretest risk factors, the most consistent with chronic migraine syndrome without red flags at this time. Treated the patient symptomatically department good effect. Recommended patient return home and continue outpatient management. DISPO: STEVIE Martin MD Staff physician, [facility] [place] Emergency Department [phone] No radiology studies performed this visit Discharge Plan Discharge Patient Disposition: Home Clinical Impression: Headache Qualifiers: Headache type: unspecified Headache chronicity pattern: acute headache Intractability: intractable Qualified Code(s): R51.9 - Headache, unspecified Condition: Stable Prescriptions: No Action Botox 100 unit recon soln 100 unit IM ONCE Qty: 2 5RF Rx Instructions: fda approved protocol for chronic migraine rizatriptan [Maxalt] 10 mg tablet See Rx Instructions PO .COMPLEX Qty: 10 3RF Rx Instructions: take 1 tab at onset of headache; if no relief may repeat 1 tab after at least 2 hrs; max = 3 escitalopram oxalate 20 mg tablet 20 mg PO DAILY Qty: 30 2RF ciprofloxacin-dexamethasone 0.3-0.1 % drops,suspension 4 drp otic (ear) BID 7 Days Qty: 7.5 0RF albuterol sulfate [Ventolin HFA] 90 mcg/actuation HFA aerosol inhaler 2 puff inhalation Q6H PRN (Reason: shortness of breath or wheezing) Qty: 8.5 1RF cholecalciferol (vitamin D3) 1,250 mcg (50,000 unit) capsule 50,000 unit PO .once weekly Qty: 12 0RF magnesium 200 mg tablet 300 mg PO BID Qty: 90 0RF diazepam 10 mg tablet 10 mg PO ONCE PRN (Reason: anxiety) 1 Days Qty: 1 3RF Rx Instructions: Take 1/2 prior to procedure and repeat if necessary Discharge Orders: Discharge ED (Routine); Ordered 11/21/24 Ordered By: Boris Martin Referrals: Destini Cerda FNP [Primary Care Provider, Family Practice] Discharge Diet: Advance as tolerated Discharge Activity: Resume usual activity Patient Instructions: Opioid Safety, Pain Management, Patient Portal & Julia Instructions Activity Restrictions/Additional Instructions: It has been a pleasure caring for you in the emergency department. Please ensure that you follow-up with your primary care physician for review of all data obtained during this encounter including any incidental findings and laboratory values. Keep in mind that if your condition worsens in any way, I strongly recommend that you return to the emergency department for repeat evaluation immediately. Print Language: Dutch Coding Level of Care Code ED Director Visual for Charli Connelly
[2024-11-21 10:05] VITALS: BP 120/74; PULSE 79; O2SAT 96
== END 2024-11-21 10:05 | disposition home or self-care (01) ==
PROVIDERS: Emergency Provider General Practice; PCP Nurse Practitioner Family
DX: R51.9 Headache, unspecified (principal)
CPT/HCPCS: 96372; 99284; J0780; J1885; J9999; Q0163

== ENCOUNTER 2024-12-07 20:23 | Emergency (ER) | payer MEDICAID, SELFPAY ==
[2024-12-07 20:55] VITALS: BP 117/79; PULSE 92; RESP 14; TEMP 36.7; O2SAT 98
--- NOTE | 2024-12-07 21:48 | W.ED.HA ---
HPI - Headache General: Chief Complaint: Headache Stated Complaint: Has a Migraine Time Seen by Provider: 12/07/24 21:42 Source: patient Mode of arrival: ambulatory Limitations: no limitations History of Present Illness: 24-year-old female states has a history of migraine states she has had a headache since last night. States that feeling her previous migraines rates her headache a 9 out of 10 currently has had vomiting along with photophobia and phonophobia. Denies any sudden onset denies any fever Associated symptoms: Reports nausea and vomiting; Deny chest pain, fever(s) or rash Related Data Previous Rx's ?Medication ?Instructions ?Recorded onabotulinumtoxinA 100 unit 100 unit IM ONCE #2 ea 12/10/23 solution for injection (Botox) rizatriptan 10 mg tablet (Maxalt) See Rx Instructions PO .COMPLEX 12/10/23 #10 tabs albuterol sulfate 90 mcg/actuation 2 puff inhalation Q6H PRN 06/22/24 aerosol inhaler (Ventolin HFA) shortness of breath or wheezing #8.5 grams cholecalciferol (vitamin D3) 1,250 50,000 unit PO .once weekly #12 06/23/24 mcg (50,000 unit) capsule caps escitalopram oxalate 20 mg tablet 20 mg PO DAILY #30 tabs 07/27/24 magnesium 200 mg tablet 300 mg (1.5 x 200 mg) PO BID #90 07/29/24 tabs diazepam 10 mg tablet 10 mg PO ONCE PRN anxiety 24 hours 09/15/24 #1 tab ciprofloxacin 0.3 %-dexamethasone 4 drp otic (ear) BID 7 days #7.5 mL 10/18/24 0.1 % ear drops,suspension Allergies Allergy/AdvReac Type Severity Reaction Status Date / Time No Known Allergies Allergy Verified 12/07/24 20:59 Review of Systems Const: Denies: fever(s), chills, body aches or change in appetite Eyes: Denies: blurry vision or eye discomfort ENMT: Denies: throat pain or dental pain Card: Denies: chest pain Resp: Denies: dyspnea GI: Reports: nausea and vomiting; Denies: abdominal pain or diarrhea Musc: Denies: neck pain or back pain Skin/Breast: Denies: rash Neuro: Reports: headache(s) PFSH ED PFSH: Medical History (Updated 12/07/24 @ 22:33 by Ashleigh Trejo MD) Participant in health and wellness plan Scoliosis Neurofibromatosis, type 1 Allergic rhinitis due to allergen Family History Grandmother Stroke Father Migraines Social History Smoking and tobacco/nicotine status: never used tobacco/nicotine Second hand smoke exposure: No Alcohol intake: never Substance/Drug Use: never Female Reproductive History: Date of last menstrual period: 11/22/24 Physical Exam Const: COMMON NORMALS: no acute distress, patient oriented x3 and healthy appearing HENMT: COMMON NORMALS: normocephalic and atraumatic HEAD & SCALP: normocephalic and atraumatic Eye: COMMON NORMALS: conjunctivae normal CONJUNCTIVA: Yes conjunctivae normal Neck/C-Spine: COMMON NORMALS: full ROM and supple Chest: COMMONS NORMALS: normal inspection of the chest Resp: COMMON NORMALS: normal respiratory effort Cardio: COMMON NORMALS: regular rate RATE: regular rate Extremity: COMMON NORMALS: normal to inspection and full ROM Neuro: COMMON NORMALS: patient oriented x3, moves all extremities and no focal motor deficits Psych: COMMON NORMALS: mental status grossly normal, Normal thought process present and cooperative THOUGHT PROCESS: Normal thought process present Skin: COMMON NORMALS: no rashes or lesions noted and no wounds GENERAL SKIN EXAM: no rashes or lesions noted Course Vital Signs: Vital signs: Vital Signs Temperature 98.1 F 12/07/24 20:55 Pulse Rate 80 12/07/24 22:29 Respiratory Rate 18 12/07/24 22:29 Blood Pressure 108/79 12/07/24 22:29 Pulse Oximetry 97 12/07/24 22:29 Oxygen Delivery Me thod Room Air 12/07/24 22:29 MDM - Headache Medical Decision Making Patient presents with headaches likely migraine headache she is well-appearing here headaches resolved after Reglan and Benadryl Toradol she has no signs of subarachnoid hemorrhage no signs of meningitis she stable for discharge follow-up PCP return if worsening. Medical Records I reviewed the patient's medical records. No radiology studies performed this visit Discharge Plan Discharge Patient Disposition: Home Clinical Impression: Headache Condition: Stable Prescriptions: No Action Botox 100 unit recon soln 100 unit IM ONCE Qty: 2 5RF Rx Instructions: fda approved protocol for chronic migraine rizatriptan [Maxalt] 10 mg tablet See Rx Instructions PO .COMPLEX Qty: 10 3RF Rx Instructions: take 1 tab at onset of headache; if no relief may repeat 1 tab after at least 2 hrs; max = 3 escitalopram oxalate 20 mg tablet 20 mg PO DAILY Qty: 30 2RF ciprofloxacin-dexamethasone 0.3-0.1 % drops,suspension 4 drp otic (ear) BID 7 Days Qty: 7.5 0RF albuterol sulfate [Ventolin HFA] 90 mcg/actuation HFA aerosol inhaler 2 puff inhalation Q6H PRN (Reason: shortness of breath or wheezing) Qty: 8.5 1RF cholecalciferol (vitamin D3) 1,250 mcg (50,000 unit) capsule 50,000 unit PO .once weekly Qty: 12 0RF magnesium 200 mg tablet 300 mg PO BID Qty: 90 0RF diazepam 10 mg tablet 10 mg PO ONCE PRN (Reason: anxiety) 1 Days Qty: 1 3RF Rx Instructions: Take 1/2 prior to procedure and repeat if necessary Discharge Orders: Discharge ED (Routine); Ordered 12/07/24 Ordered By: Ashleigh Trejo Referrals: Destini Cerda FNP [Primary Care Provider, Family Practice] - 4-7 days Discharge Diet: Advance as tolerated Discharge Activity: Resume usual activity Patient Instructions: Migraine Headache (ED) Print Language: Greenlandic Coding Level of Care Code ED Mattress Packer for Charli Connelly
[2024-12-07] MEDS: diphenhydrAMINE 50 mg/mL SDV 1mL IVP (22:16)
[2024-12-07] MEDS: metoclopramide 5 mg/mL SDV 2 mL 10 MG IVP (22:16)
[2024-12-07 22:29] VITALS: BP 108/79; PULSE 80; RESP 18; O2SAT 97
[2024-12-07 22:38] VITALS: BP 100/66; PULSE 89; RESP 16; O2SAT 99
== END 2024-12-07 22:37 | disposition home or self-care (01) ==
PROVIDERS: Emergency Provider Emergency Medicine; PCP Nurse Practitioner Family
DX: R51.9 Headache, unspecified (principal)
CPT/HCPCS: 96374; 96375; 99284; J1200; J1885; J2765

== ENCOUNTER 2024-12-16 16:44 | Emergency (ER) | payer MEDICAID, SELFPAY ==
[2024-12-16 16:46] VITALS: BP 118/81; PULSE 79; TEMP 36.8; O2SAT 98; BMI 20.5
--- NOTE | 2024-12-16 16:50 | ECG_ITS ---
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 Measurements Intervals [place] Rate: 80 P: 61 UT: 137 QRS: 92 QRSD: 89 T: 32 QT: 352 QTc: 406 Interpretive Statements SINUS RHYTHM BORDERLINE RIGHT AXIS DEVIATION [QRS AXIS > 90] NONSPECIFIC ST & T-WAVE ABNORMALITY INTERPRETATION BASED ON A DEFAULT AGE OF 40 YEARS Compared to ECG 10/06/2024 20:09:51 Possible ischemia no longer present T-wave abnormality still present Electronically Signed On 12-18-2024 20:25:19 CDT by Marcella Chance M.D. [email or web address]
[2024-12-16 17:56] VITALS: BP 113/73; PULSE 82; RESP 16; O2SAT 98
--- NOTE | 2024-12-16 17:59 | ECG_ITS ---
[facility]: 2024-12-16 Pat Name: Mona Leon Department: Room: Gender: Female Sales Trainer: : 2000 Requested By: Gloria Moreland Order Number: [id number] Dennis MD: Clifton Rosas M.D. Measurements Intervals [place] Rate: 91 P: 59 MS: 150 QRS: 93 QRSD: 84 T: 40 QT: 355 QTc: 438 Interpretive Statements SINUS RHYTHM WITH SINUS ARRHYTHMIA POSSIBLE LEFT ATRIAL ENLARGEMENT [-0.1mV P-WAVE IN V1/V2] BORDERLINE RIGHT AXIS DEVIATION [QRS AXIS > 90] NONSPECIFIC ST & T-WAVE ABNORMALITY Compared to ECG 10/06/2024 20:09:51 Possible ischemia no longer present T-wave abnormality still present Electronically Signed On 12-18-2024 13:10:11 CDT by Clifton Rosas M.D. [email or web address]
--- NOTE | 2024-12-16 18:00 | XRR_ITS ---
PROCEDURE INFORMATION: Exam: XR Chest Exam date and time: 12/16/2024 6:02 PM Age: 24 years old Clinical indication: Pain; Chest pressure; Additional info: Chest pain TECHNIQUE: Imaging protocol: Radiologic exam of the chest. Views: 1 view. COMPARISON: CR XR scoliosis survey 4-5V [id number] 05/13/2018 8:17 AM FINDINGS: Lungs: Unremarkable. No consolidation. Pleural spaces: Unremarkable. No pleural effusion. No pneumothorax. Heart/Mediastinum: Unremarkable. No cardiomegaly. Bones/joints: Unremarkable. XR/XR chest 1V portable [id number] IMPRESSION: No acute findings.
--- NOTE | 2024-12-16 18:43 | W.ED.CHESTPA ---
HPI - Chest Pain General: Chief Complaint: Chest Pain Stated Complaint: chest pain Time Seen by Provider: 12/16/24 17:49 History of Present Illness: Patient is a 24-year-old female presents ED due to chest pain. She states this is a pressure sensation in the central area of her chest without radiation, associated with nausea, with emesis, and associated with diarrhea, and associated with shortness of breath. This is occurred off and on for the last 1 week. Patient did see primary care physician 2 days ago, complained of nausea, vomiting, diarrhea, and asked her to wait it out. Patient called primary care physician today, that stated they were out till Friday. She has association of headache today. Associated symptoms: Reports nausea and vomiting; Deny abdominal pain, dyspnea, fever(s) or palpitations Related Data Previous Rx's ?Medication ?Instructions ?Recorded onabotulinumtoxinA 100 unit 100 unit IM ONCE #2 ea 12/10/23 solution for injection (Botox) rizatriptan 10 mg tablet (Maxalt) See Rx Instructions PO .COMPLEX 12/10/23 #10 tabs albuterol sulfate 90 mcg/actuation 2 puff inhalation Q6H PRN 06/22/24 aerosol inhaler (Ventolin HFA) shortness of breath or wheezing #8.5 grams cholecalciferol (vitamin D3) 1,250 50,000 unit PO .once weekly #12 06/23/24 mcg (50,000 unit) capsule caps escitalopram oxalate 20 mg tablet 20 mg PO DAILY #30 tabs 07/27/24 magnesium 200 mg tablet 300 mg (1.5 x 200 mg) PO BID #90 07/29/24 tabs diazepam 10 mg tablet 10 mg PO ONCE PRN anxiety 24 hours 09/15/24 #1 tab ciprofloxacin 0.3 %-dexamethasone 4 drp otic (ear) BID 7 days #7.5 mL 10/18/24 0.1 % ear drops,suspension ondansetron 4 mg disintegrating 4 mg PO Q8H PRN nausea and 12/16/24 tablet vomiting 4 days #14 tabs Allergies Allergy/AdvReac Type Severity Reaction Status Date / Time No Known Allergies Allergy Verified 12/16/24 16:54 Review of Systems Const: Denies: fever(s), chills, body aches or change in appetite Eyes: Denies: change in vision, eye discharge or eye redness ENMT: Reports: nasal discharge and nasal congestion; Denies: throat pain, hoarseness, ear or mastoid pain or ear discharge Card: Denies: palpitations, irregular heart rhythm or edema Resp: Denies: dyspnea, productive cough, non-productive cough or wheezing GI: Reports: nausea, vomiting and diarrhea; Denies: abdominal pain, constipation or hematochezia : Denies: difficulty voiding, dysuria, urinary frequency, urinary urgency, urinary hesitancy or hematuria Musc: Denies: joint swelling, joint redness, joint warmth or joint stiffness Skin/Breast: Denies: rash Neuro: Denies: headache(s) Psych: Denies: suicidal ideation or homicidal ideation Eugene/Lymph: Denies: enlarged lymph nodes or tender lymph nodes PFSH ED PFSH: Medical History (Updated 12/16/24 @ 19:28 by SARAH Magallon) Participant in health and wellness plan Scoliosis Neurofibromatosis, type 1 Allergic rhinitis due to allergen Family History Grandmother Stroke Father Migraines Social History Smoking and tobacco/nicotine status: never used tobacco/nicotine Second hand smoke exposure: No Alcohol intake: never Substance/Drug Use: never Physical Exam Const: COMMON NORMALS: no acute distress, average body habitus and patient oriented x3 HENMT: COMMON NORMALS: normocephalic and atraumatic HEAD & SCALP: normocephalic and atraumatic Eye: COMMON NORMALS: Equal, round and reactive pupils present and EOMs intact bilaterally PUPIL: Yes Equal, round and reactive pupils present Lymph: LYMPHATIC: no lymphadenopathy noted Chest: COMMONS NORMALS: normal inspection of the chest and normal palpation of entire chest wall Resp: COMMON NORMALS: normal respiratory effort, No retractions and clear to auscultation bilaterally AUSCULTATION: clear to auscultation bilaterally Cardio: COMMON NORMALS: regular rate and regular rhythm RATE: regular rate RHYTHM: regular rhythm GI: COMMON NORMALS: Normal to inspection, nondistended, normoactive bowel sounds present, Soft to palpation and non-tender PALPATION: Yes Soft to palpation : COMMON NORMALS: Yes no CVA tenderness BLADDER/KIDNEY EXAM: Yes no CVA tenderness Back/Pelvis: COMMON NORMALS: no CVA tenderness Extremity: COMMON NORMALS: normal to inspection, full ROM and capillary refill normal Neuro: COMMON NORMALS: patient oriented x3 and CN's II-XII intact bilaterally Psych: COMMON NORMALS: mental status grossly normal and Normal thought process present THOUGHT PROCESS: Normal thought process present Skin: COMMON NORMALS: no rashes or lesions noted, no wounds and turgor normal GENERAL SKIN EXAM: no rashes or lesions noted and turgor normal Course Vital Signs: Vital signs: Vital Signs Temperature 98.2 F 12/16/24 16:46 Pulse Rate 94 12/16/24 19:44 Respiratory Rate 17 12/16/24 19:44 Blood Pressure 115/79 12/16/24 19:44 Pulse Oximetry 96 12/16/24 19:44 Oxygen Delivery Me thod Room Air 12/16/24 17:56 MDM - Chest Pain Medical Decision Making Patient is a 24-year-old female that has had association of nausea, vomiting, now substernal chest pain. This could be multiple differentials including cholelithiasis, gastroenteritis, however at this time she is complaining of just chest discomfort. EKG, x-ray are negative. D-dimer does not show any concern for coagulopathy issues. Patient was given Zofran and has improved. She will follow-up with primary care physician regarding these issues and further evaluation, and Zofran was sent to the pharmacy. All of her questions answered to her satisfaction. Medical Records I reviewed the patient's medical records. Lab Data I reviewed the patient's lab results. Radiology Impressions Chest X-Ray 12/16/24 18:00 IMPRESSION: No acute findings. Laboratory Results D-Dimer <= 0.27 ug/mLFEU (0-0.59) 12/16/24 18:36 All radiology interpretation(s) finalized by discharge ED provider radiology interpretation(s): No acute findings on my view EKG Data EKG 1: Interpretation: Normal sinus rhythm, right axis, no ST segment elevation, QTc 404 ms, LA 150 ms Discharge Plan Discharge Patient Disposition: Home Clinical Impression: Non-cardiac chest pain Nausea & vomiting Qualifiers: Vomiting type: bilious vomiting Qualified Code(s): R11.14 - Bilious vomiting Condition: Stable Prescriptions: New ondansetron 4 mg tablet,disintegrating 4 mg PO Q8H PRN (Reason: nausea and vomiting) 4 Days Qty: 14 0RF No Action Botox 100 unit recon soln 100 unit IM ONCE Qty: 2 5RF Rx Instructions: fda approved protocol for chronic migraine rizatriptan [Maxalt] 10 mg tablet See Rx Instructions PO .COMPLEX Qty: 10 3RF Rx Instructions: take 1 tab at onset of headache; if no relief may repeat 1 tab after at least 2 hrs; max = 3 escitalopram oxalate 20 mg tablet 20 mg PO DAILY Qty: 30 2RF ciprofloxacin-dexamethasone 0.3-0.1 % drops,suspension 4 drp otic (ear) BID 7 Days Qty: 7.5 0RF albuterol sulfate [Ventolin HFA] 90 mcg/actuation HFA aerosol inhaler 2 puff inhalation Q6H PRN (Reason: shortness of breath or wheezing) Qty: 8.5 1RF cholecalciferol (vitamin D3) 1,250 mcg (50,000 unit) capsule 50,000 unit PO .once weekly Qty: 12 0RF magnesium 200 mg tablet 300 mg PO BID Qty: 90 0RF diazepam 10 mg tablet 10 mg PO ONCE PRN (Reason: anxiety) 1 Days Qty: 1 3RF Rx Instructions: Take 1/2 prior to procedure and repeat if necessary Discharge Orders: Discharge ED (Routine); Ordered 12/16/24 Ordered By: Gloria Moreland Referrals: Destini Cerda FNP [Primary Care Provider, Family Practice] Discharge Diet: Clear Liquid Discharge Activity: Resume usual activity Patient Instructions: Acute Nausea and Vomiting (ED), Patient Portal & Julia Instructions Activity Restrictions/Additional Instructions: - Nausea and vomiting medication has been sent to the pharmacy. This will also help with diarrhea -Call to follow-up with your doctor for an ER visit. You may need this general testing. -No acute coronary issues were noted on this evaluation, however feel free to return to the ED if you have ongoing issues -Your D-dimer was negative indicating no clot. - Clear liquid diet until your nausea and vomiting resolves. Stand Alone Forms: Work/School Release Print Language: Senegalese Coding Level of Care Code ED Registered Dietician for Charli Connelly
[2024-12-16] MEDS: ondansetron hcl ODT 4 mg Tab PO (18:54)
[2024-12-16 19:37] VITALS: BP 115/79; PULSE 98; RESP 17; O2SAT 99
[2024-12-16 19:44] VITALS: BP 115/79; PULSE 94; RESP 17; O2SAT 96
== END 2024-12-16 19:45 | disposition home or self-care (01) ==
PROVIDERS: Emergency Provider Physician Assistant; PCP Nurse Practitioner Family
DX: R07.89 Other chest pain (principal); R11.14 Bilious vomiting
CPT/HCPCS: 36415; 71045; 85378; 93005; 99285; Q0162

== ENCOUNTER → 2025-01-06 10:17 | Outpatient (BNVA) | payer MEDICAID, SELFPAY | PROVIDERS: PCP Nurse Practitioner Family; Visit Provider Specialist | DX: G43.711 Chronic migraine without aura, intractable, with status migrainosus (principal); Q85.01 Neurofibromatosis, type 1 | CPT/HCPCS: 64615; J0585; J9999 ==

== ENCOUNTER 2025-01-13 00:10 | Emergency (ER) | payer MEDICAID, SELFPAY ==
[2025-01-13 00:17] VITALS: BP 109/77; PULSE 91; RESP 19; TEMP 36.3; O2SAT 98; BMI 21.7
[2025-01-13 02:32] VITALS: BP 112/86; PULSE 92; O2SAT 100
[2025-01-13 03:42] LABS: HCG Qualitative Urine. Negative (Negative)
--- NOTE | 2025-01-13 03:50 | W.ED.GENADLT ---
HPI - General Adult General: Chief complaint: Nausea/Vomiting/Diarrhea Stated complaint: Mirgraine Headache Time Seen by Provider: 01/13/25 02:11 History of Present Illness: Patient is a 24-year-old female presenting with a chief complaint of 10 out of 10 headache. Patient has a history of migraines and states that this is similar to previous. Patient follows with Dr. Browne and gets Botox injections for migraines. She states that headache developed gradually today. It is associated with photophobia, nausea and vomiting. Patient denies fever, vision changes, upper respiratory symptoms, chest pain, shortness of breath, abdominal pain, diarrhea, dysuria or leg swelling. She denies any focal weakness, numbness, difficulty with ambulation and coordination. Related Data Previous Rx's ?Medication ?Instructions ?Recorded onabotulinumtoxinA 100 unit 100 unit IM ONCE #2 ea 12/10/23 solution for injection (Botox) rizatriptan 10 mg tablet (Maxalt) See Rx Instructions PO .COMPLEX 12/10/23 #10 tabs albuterol sulfate 90 mcg/actuation 2 puff inhalation Q6H PRN 06/22/24 aerosol inhaler (Ventolin HFA) shortness of breath or wheezing #8.5 grams cholecalciferol (vitamin D3) 1,250 50,000 unit PO .once weekly #12 06/23/24 mcg (50,000 unit) capsule caps escitalopram oxalate 20 mg tablet 20 mg PO DAILY #30 tabs 07/27/24 magnesium 200 mg tablet 300 mg (1.5 x 200 mg) PO BID #90 07/29/24 tabs ciprofloxacin 0.3 %-dexamethasone 4 drp otic (ear) BID 7 days #7.5 mL 10/18/24 0.1 % ear drops,suspension diazepam 10 mg tablet 10 mg PO ONCE PRN anxiety 24 hours 01/04/25 #1 tab Allergies Allergy/AdvReac Type Severity Reaction Status Date / Time No Known Allergies Allergy Verified 01/06/25 10:36 [facility] ED PFSH: Medical History (Updated 01/13/25 @ 04:01 by Dalia Benavides MD) Participant in health and wellness plan Scoliosis Neurofibromatosis, type 1 Allergic rhinitis due to allergen Family History Grandmother Stroke Father Migraines Social History Smoking and tobacco/nicotine status: never used tobacco/nicotine Second hand smoke exposure: No Alcohol intake: never Substance/Drug Use: never Female Reproductive History: Date of last menstrual period: 12/23/24 Physical Exam Narrative: EXAM NARRATIVE: Vital signs were reviewed. Patient is alert and oriented. Patient is breathing comfortably, no increased WOB or accessory muscle use. SpO2 is above 95% on RA. Patient has clear lungs bilaterally, no wheezing, crackles or rhonchi. No hypotension or tachycardia. Abdomen is soft, nondistended nontender. Patient is moving all extremities, no deformity or gross injury. Neuro: Awake, alert, strength equal bilaterally. No sensory deficit. Able to perform FNF, heel to james. CRANIAL NERVES: II: Pupils equal and reactive, III, IV, : EOM intact, no gaze preference or deviation, no nystagmus. V: normal sensation in V1, V2, and V3 segments bilaterally VII: no asymmetry, no nasolabial fold flattening VIII: normal hearing to speech IX, X: normal palatal elevation, no uvular deviation XI: 5/5 head turn and 5/5 shoulder shrug bilaterally XII: midline tongue protrusion Course Vital Signs: Vital signs: Vital Signs Temperature 97.4 F L 01/13/25 00:17 Pulse Rate 92 01/13/25 02:32 Respiratory Rate 19 H 01/13/25 00:17 Blood Pressure 112/86 01/13/25 02:32 Pulse Oximetry 100 01/13/25 02:32 Oxygen Delivery Me thod Room Air 01/13/25 02:32 MDM - General Adult Medical Decision Making 24-year-old female with a history of migraines presents with a chief complaint of gradual onset headache, bilateral, similar to previous. Differential diagnosis includes, is limited to, cluster headache, tension headache, migraine, status migrainosus, viral infection, meningitis, ICH, other. On exam, patient is HemoCue stable and nontoxic-appearing. She does not have any neurologic deficits on exam. Patient denies possibility of and states last menstrual cycle was December 23. Patient was treated with migraine cocktail including fluids, IV Toradol, IV Compazine and p.o. Tylenol. Patient is not . On reassessment, patient's headache has completely resolved. Patient wishes to go home. Patient was counseled on supportive care at home, given return precautions and discharged with recommendation for outpatient follow-up. Lab Data Laboratory Results HCG, Qual Negative (Negative) 01/13/25 03:34 Amorphous Sediment Not Reportable 01/13/25 03:34 No radiology studies performed this visit Discharge Plan Discharge Patient Disposition: Home Clinical Impression: Migraine Condition: Stable Prescriptions: No Action Botox 100 unit recon soln 100 unit IM ONCE Qty: 2 5RF Rx Instructions: fda approved protocol for chronic migraine rizatriptan [Maxalt] 10 mg tablet See Rx Instructions PO .COMPLEX Qty: 10 3RF Rx Instructions: take 1 tab at onset of headache; if no relief may repeat 1 tab after at least 2 hrs; max = 3 escitalopram oxalate 20 mg tablet 20 mg PO DAILY Qty: 30 2RF ciprofloxacin-dexamethasone 0.3-0.1 % drops,suspension 4 drp otic (ear) BID 7 Days Qty: 7.5 0RF albuterol sulfate [Ventolin HFA] 90 mcg/actuation HFA aerosol inhaler 2 puff inhalation Q6H PRN (Reason: shortness of breath or wheezing) Qty: 8.5 1RF diazepam 10 mg tablet 10 mg PO ONCE PRN (Reason: anxiety) 1 Days Qty: 1 3RF Rx Instructions: Take 1/2 prior to procedure and repeat if necessary cholecalciferol (vitamin D3) 1,250 mcg (50,000 unit) capsule 50,000 unit PO .once weekly Qty: 12 0RF magnesium 200 mg tablet 300 mg PO BID Qty: 90 0RF Discharge Orders: Discharge ED (Routine); Ordered 01/13/25 Ordered By: Dalia Benavides Referrals: Destini Cerda FNP [Primary Care Provider, Family Practice] Patient Instructions: Opioid Safety, Pain Management, Patient Portal & Julia Instructions, Migraine Headache (ED) Activity Restrictions/Additional Instructions: Please continue to monitor your condition closely at home. Take Ibuprofen 400mg and Tylenol 500-1000mg every six hours for pain and inflammation. If your condition worsens or additional concerns arise, please return promptly to the emergency department for reassessment. Follow up with your primary care doctor in one week. Print Language: Lao Coding Level of Care Code ED Human Resource Advisor for Charli Connelly
[2025-01-13 03:54] LABS: Glucose Urine UA Negative (Normal); Nitrate Urine Negative (Negative); Specific Gravity, Urine 1.029 (1.005-1.030)
[2025-01-13 03:56] LABS: Add Urine Microscopic? YES
[2025-01-13 04:10] LABS: UA Slide Review UA Slide Review Perf
== END 2025-01-13 04:06 | disposition home or self-care (01) ==
PROVIDERS: Emergency Provider Emergency Medicine; PCP Nurse Practitioner Family
DX: G43.909 Migraine, unspecified, not intractable, without status migrainosus (principal)
CPT/HCPCS: 80053; 81001; 81025; 85025; 96374; 96375; 99284; J0780; J1885; J7120; J9999

== ENCOUNTER 2025-03-12 22:24 | Emergency (ER) | payer MEDICAID, SELFPAY ==
[2025-03-12 22:30] VITALS: BP 107/75; PULSE 85; RESP 16; TEMP 36.8; O2SAT 100; BMI 23.4
--- NOTE | 2025-03-12 22:55 | ED_ITS ---
Documented by User: SARAH Schrader 03/13/25 15:05 HPI - Headache General: Chief Complaint: Headache Stated Complaint: migraine Time Seen by Provider: 03/12/25 22:52 Source: patient Mode of arrival: ambulatory Limitations: no limitations History of Present Illness: Patient is a 24-year-old female presents emerged apartment saying that she is having a migraine. Friday this started reports a history of migraines states that this feels similar. She is endorsing nausea and vomiting, patient also states overall she is just felt off. She does see a neurologist she takes Botox injections for her headaches. Notes that today's headache is identical to previous she has no other neurological symptoms to report. Vitals are stable at this time, her migraine is exacerbated by light and sound. MD elicited complaint: headache and migraine Associated symptoms: Reports nausea and vomiting; Deny chest pain, fever(s), lightheadedness or rash Related Data Previous Rx's ?Medication ?Instructions ?Recorded onabotulinumtoxinA 100 unit 100 unit IM ONCE #2 ea 02/21 solution for injection (Botox) rizatriptan 10 mg tablet (Maxalt) See Rx Instructions PO .COMPLEX 12/10/23 #10 tabs albuterol sulfate 90 mcg/actuation 2 puff inhalation Q 6H PRN 06/22/24 aerosol inhaler (Ventolin HFA) shortness of breath or wheezing #8.5 grams cholecalciferol (vitamin D3) 1,250 50,000 unit PO .onc e weekly #12 06/23/24 mcg (50,000 unit) capsule caps escitalopram oxalate 20 mg tablet 20 mg PO DAILY #30 t abs 07/27/24 magnesium 200 mg tablet 300 mg (1.5 x 200 mg) PO BID #90 07/29/24 tabs ciprofloxacin 0.3 %-dexamethasone 4 drp otic (ear) BID 7 days #7.5 mL 10/18/24 0.1 % ear drops,suspension diazepam 10 mg tablet 10 mg PO ONCE PRN anxiety 24 hours 01/04/25 #1 tab ondansetron 8 mg disintegrating 8 mg PO Q8H PRN nausea and 01/13/25 tablet vomiting #10 tabs Allergies Allergy/AdvReac Type Severity Reaction Status Date / Time No Known Allergies Allergy Verified 03/12/25 22:35 Review of Systems General: Reports: 10 or more systems reviewed and unremarkable except in HPI and below Const: Denies: fever(s), chills or fatigue Eyes: Denies: change in vision ENMT: Denies: throat pain, ear or mastoid pain or nasal discharge Card: Denies: chest pain, palpitations, swelling of feet/ankles or lightheadedness Resp: Denies: dyspnea, productive cough or wheezing GI: Reports: nausea and vomiting; Denies: abdominal pain, diarrhea or constipation : Denies: flank pain, difficulty voiding, dysuria or urinary frequency Musc: Denies: neck pain, back pain or joint pain Skin/Breast: Denies: rash Neuro: Reports: headache(s); Denies: numbness in extremities, weakness in extremities, dizziness or seizure- like activity PFS ED PFSH: Medical History Participant in health and wellness plan Scoliosis Neurofibromatosis, type 1 Allergic rhinitis due to allergen Family History Grandmother Stroke Father Migraines Social History Smoking and tobacco/nicotine status: never used tobacco/nicotine Second hand smoke exposure: No Alcohol intake: never Substance/Drug Use: never Physical Exam Const: COMMON NORMALS: no acute distress, patient oriented x3 and no limitations GENERAL APPEARANCE: cooperative, comfortable and well developed ORIENTATION/CONSCIOUSNESS: Yes awake, Yes oriented to person, Yes oriented to place and Yes oriented to time HENMT: COMMON NORMALS: normocephalic, atraumatic and hearing grossly normal bilaterally HEAD & SCALP: normocephalic and atraumatic Eye: COMMON NORMALS: Equal, round and reactive pupils present, EOMs intact bi laterally and conjunctivae normal CONJUNCTIVA: Yes conjunctivae normal PUPIL: Yes Equal, round and reactive pupils present Neck/C-Spine: COMMON NORMALS: full ROM, supple and no JVD Resp: COMMON NORMALS: normal respiratory effort, No retractions, No use of accessory muscles and clear to auscultation bilaterally AUSCULTATION: clear to auscultation bilaterally Cardio: COMMON NORMALS: no JVD, regular rate, regular rhythm, No clicks present (Cardio), No murmurs present (Cardio) and No rub (Cardio) RATE: regular rate RHYTHM: regular rhythm Extremity: COMMON NORMALS: normal to inspection, full ROM and capillary refill normal Neuro: COMMON NORMALS: patient oriented x3, moves all extremities, no focal motor deficits and no sensory deficits noted SENSORIUM/ORIENTATION: Yes oriented to person, Yes oriented to place and Yes oriented to time Skin: COMMON NORMALS: no rashes or lesions noted GENERAL SKIN EXAM: no rashes or lesions noted Course Vital Signs: Vital signs: Vital Signs Temperature 98.3 F 03/12/25 22:30 Pulse Rate 94 03/13/25 00:44 Respiratory Rate 18 03/13/25 00:44 Blood Pressure 103/68 03/13/25 00:44 Pulse Oximetry 100 03/13/25 00:44 Oxygen Delivery Me thod Room Air 03/12/25 22:30 MDM - Headache Medical Decision Making Patient presented for complaints of migraine headache, stating it felt similar. She has been having nausea vomiting as well. Has received migraine cocktail in the past is requesting this, no neurological deficit on exam and she did not report to me any neurological symptoms, head imaging not warranted at this time. She is given migraine cocktail discharge home and to follow-up with her neurologist for further evaluation. Told to return with any new or worsening. No radiology studies performed this visit Discharge Plan Discharge Patient Disposition: Home Clinical Impression: Migraine Qualifiers: Migraine type: unspecified Status migrainosus presence: with status migrainosus Intractability: intractable Qualified Code(s): G43.911 - Migraine, unspecified, intractable, with status migrainosus Condition: Stable Prescriptions: No Action Botox 100 unit recon soln 100 unit IM ONCE Qty: 2 5RF Rx Instructions: fda approved protocol for chronic migraine rizatriptan [Maxalt] 10 mg tablet See Rx Instructions PO .COMPLEX Qty: 10 3RF Rx Instructions: take 1 tab at onset of headache; if no relief may repeat 1 tab after at least 2 hrs; max = 3 escitalopram oxalate 20 mg tablet 20 mg PO DAILY Qty: 30 2RF ciprofloxacin-dexamethasone 0.3-0.1 % drops,suspension 4 drp otic (ear) BID 7 Days Qty: 7.5 0RF ondansetron 8 mg tablet,disintegrating 8 mg PO Q8H PRN (Reason: nausea and vomiting) Qty: 10 0RF albuterol sulfate [Ventolin HFA] 90 mcg/actuation HFA aerosol inhaler 2 puff inhalation Q6H PRN (Reason: shortness of breath or wheezing) Qty: 8.5 1RF diazepam 10 mg tablet 10 mg PO ONCE PRN (Reason: anxiety) 1 Days Qty: 1 3RF Rx Instructions: Take 1/2 prior to procedure and repeat if necessary cholecalciferol (vitamin D3) 1,250 mcg (50,000 unit) capsule 50,000 unit PO .once weekly Qty: 12 0RF magnesium 200 mg tablet 300 mg PO BID Qty: 90 0RF Discharge Orders: Discharge ED (Routine); Ordered 03/12/25 Ordered By: Carlos Ramírez Referrals: Destini Cerda FNP [Primary Care Provider, Family Practice] Patient Instructions: Patient Portal & Julia Instructions Activity Restrictions/Additional Instructions: Continue taking home prescribed medications. Return with any new or worsening. 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 [employer] Documented by User: Tarun Williamson DO 03/13/25 17:00 HPI - Headache General: Chief Complaint: Headache Stated Complaint: migraine Time Seen by Provider: 03/12/25 22:52 Related Data Previous Rx's ?Medication ?Instructions ?Recorded onabotulinumtoxinA 100 unit 100 unit IM ONCE #2 ea 02/21 solution for injection (Botox) rizatriptan 10 mg tablet (Maxalt) See Rx Instructions PO .COMPLEX 12/10/23 #10 tabs albuterol sulfate 90 mcg/actuation 2 puff inhalation Q 6H PRN 06/22/24 aerosol inhaler (Ventolin HFA) shortness of breath or wheezing #8.5 grams cholecalciferol (vitamin D3) 1,250 50,000 unit PO .onc e weekly #12 06/23/24 mcg (50,000 unit) capsule caps escitalopram oxalate 20 mg tablet 20 mg PO DAILY #30 t abs 07/27/24 magnesium 200 mg tablet 300 mg (1.5 x 200 mg) PO BID #90 07/29/24 tabs ciprofloxacin 0.3 %-dexamethasone 4 drp otic (ear) BID 7 days #7.5 mL 10/18/24 0.1 % ear drops,suspension diazepam 10 mg tablet 10 mg PO ONCE PRN anxiety 24 hours 01/04/25 #1 tab ondansetron 8 mg disintegrating 8 mg PO Q8H PRN nausea and 01/13/25 tablet vomiting #10 tabs Allergies Allergy/AdvReac Type Severity Reaction Status Date / Time No Known Allergies Allergy Verified 03/12/25 22:35 [facility] ED PFSH: Medical History Participant in health and wellness plan Scoliosis Neurofibromatosis, type 1 Allergic rhinitis due to allergen Family History Grandmother Stroke Father Migraines Social History Smoking and tobacco/nicotine status: never used tobacco/nicotine Second hand smoke exposure: No Alcohol intake: never Substance/Drug Use: never Course Vital Signs: Vital signs: Vital Signs Temperature 98.3 F 03/12/25 22:30 Pulse Rate 94 03/13/25 00:44 Respiratory Rate 18 03/13/25 00:44 Blood Pressure 103/68 03/13/25 00:44 Pulse Oximetry 100 03/13/25 00:44 Oxygen Delivery Me thod Room Air 03/12/25 22:30 MDM - Headache Medical Decision Making Patient presented for complaints of migraine headache, stating it felt similar. She has been having nausea vomiting as well. Has received migraine cocktail in the past is requesting this, no neurological deficit on exam and she did not report to me any neurological symptoms, head imaging not warranted at this time. She is given migraine cocktail discharge home and to follow-up with her neurologist for further evaluation. Told to return with any new or worsening. This patient was originally seen by Mr. Darrell PA-C. I agree with his history, evaluation and management. Discharge Plan Discharge Patient Disposition: Home Clinical Impression: Migraine Qualifiers: Migraine type: unspecified Status migrainosus presence: with status migrainosus Intractability: intractable Qualified Code(s): G43.911 - Migraine, unspecified, intractable, with status migrainosus Condition: Stable Prescriptions: No Action Botox 100 unit recon soln 100 unit IM ONCE Qty: 2 5RF Rx Instructions: fda approved protocol for chronic migraine rizatriptan [Maxalt] 10 mg tablet See Rx Instructions PO .COMPLEX Qty: 10 3RF Rx Instructions: take 1 tab at onset of headache; if no relief may repeat 1 tab after at least 2 hrs; max = 3 escitalopram oxalate 20 mg tablet 20 mg PO DAILY Qty: 30 2RF ciprofloxacin-dexamethasone 0.3-0.1 % drops,suspension 4 drp otic (ear) BID 7 Days Qty: 7.5 0RF ondansetron 8 mg tablet,disintegrating 8 mg PO Q8H PRN (Reason: nausea and vomiting) Qty: 10 0RF albuterol sulfate [Ventolin HFA] 90 mcg/actuation HFA aerosol inhaler 2 puff inhalation Q6H PRN (Reason: shortness of breath or wheezing) Qty: 8.5 1RF diazepam 10 mg tablet 10 mg PO ONCE PRN (Reason: anxiety) 1 Days Qty: 1 3RF Rx Instructions: Take 1/2 prior to procedure and repeat if necessary cholecalciferol (vitamin D3) 1,250 mcg (50,000 unit) capsule 50,000 unit PO .once weekly Qty: 12 0RF magnesium 200 mg tablet 300 mg PO BID Qty: 90 0RF Discharge Orders: Discharge ED (Routine); Ordered 03/12/25 Ordered By: Carlos Ramírez Referrals: Destini Cerda FNP [Primary Care Provider, Family Practice] Patient Instructions: Patient Portal & Julia Instructions Activity Restrictions/Additional Instructions: Continue taking home prescribed medications. Return with any new or worsening. 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
[2025-03-12] MEDS: ondansetron 2 mg/ML SDV 2 mL 4 MG IVP (23:57)
[2025-03-13] MEDS: diphenhydrAMINE 50 mg/mL SDV 1mL IVP (00:01)
[2025-03-13 00:05] VITALS: BP 131/85; PULSE 104; O2SAT 100
[2025-03-13 00:44] VITALS: BP 103/68; PULSE 94; RESP 18; O2SAT 100
== END 2025-03-13 00:45 | disposition home or self-care (01) ==
PROVIDERS: Emergency Provider Physician Assistant; PCP Nurse Practitioner Family
DX: G43.911 Migraine, unspecified, intractable, with status migrainosus (principal)
CPT/HCPCS: 96374; 96375; 99284; J1100; J1200; J1885; J2405; J7030